=== PATIENT | female | born 1950 | race Caucasian/White ===

== ENCOUNTER 2019-07-05 11:15 | Observation (INO) | payer MEDICARE ==
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
[2019-07-05] MEDS ORDERED: HYDROcodone/ACETAMIN 5-325 MG* 1 TAB PO ONE (12:00)
[2019-07-05] MEDS ORDERED: Ketorolac *IM* INJ* 60 MG/2 ML VIAL IM ONE (12:00)
--- NOTE | 2019-07-05 12:01 | ED ---
Complex/Multi-Sys Presentation - HPI Summary HPI Summary: This pt is a 69 Y/O F presenting to [facility] with a CC of joint pain and stiffness that has been present for 3 weeks and has increased today to a 6/10 in severity. Her states that her joints are getting stiffer since the onset. She states that she has been having an increase in fatigue and stated that she has been taking 6 or more naps a day. She has recently started Humira 6 weeks ago due to her other pill decreasing her liver function. She states that when she woke up this morning she was unable to move. She denies fever, chills, erythema of eyes, sore throat, CP, SOB, cough, abdominal pain, N/V, dysuria, hematuria, myalgia, edema, rash, tingling, numbness, or dizziness. She states that she takes Mobic but denies any ibuprofen or Tylenol. She has aggravating factors with palpation and movement. She states that if she stays still her pain is not as bad. She states that she has been unable to ambulate correctly for about a month. She has a PMHx of arthritis. She has no pertinent FHx. She states that she only drinks on special occasions. - History Of Current Complaint Chief Complaint: EDGeneral Time Seen by Provider: 07/05/19 11:42 Hx Obtained From: Patient, Family/Specialty Foods Cook - Onset/Duration: Sudden Onset, Lasting Weeks - 3, Still Present, Worse Since - onset Timing: Constant Severity Currently: Moderate - 6/10 Severity Initially: Mild Location: Pain At: - states that all her joints are in pain Aggravating Factor(s): movement and palpation Alleviating Factor(s): lying down Associated Signs And Symptoms: Positive: Other - arthralgia. Negative: Dizziness, SOB, Cough, Chest Pain, Edema, Nausea, Vomiting, Abdominal Pain, Dysuria, Fever - Allergies/Home Medications Allergies/Adverse Reactions: Allergies Allergy/AdvReac Type Severity Reaction Status Date / Time sumatriptan [From Imitrex] Allergy Unknown Verified 07/05/19 11:31 Reaction Details artificial sweeteners Allergy Unknown Uncoded 07/05/19 11:31 Reaction Details Home Medications: Home Medications Adalimumab [Humira] 40 mg SUBCUT .[id number] 07/05/19 [History Confirmed 07/05/19] Docusate CAP* [Colace Cap*] 100 mg PO DAILY 07/05/19 [History Confirmed 07/05/19 ] Insulin Glargine,Hum.rec.anlog [Basaglar Kwikpen 100 inuts/ml 3 ml x 5 Pens] 50 units SUBCUT QPM 07/05/19 [History Confirmed 07/05/19] LORazepam TAB(*) [Ativan 1 MG TAB (*)] 1 mg PO TID PRN 07/05/19 [History Confirmed 07/05/19] Meloxicam(NF) [Mobic(NF)] 15 mg PO DAILY 07/05/19 [History Confirmed 07/05/19] Multivitamins/Minerals TAB* [Theragran/minerals TAB*] 1 tab PO DAILY 07/05/19 [ History Confirmed 07/05/19] metFORMIN* [Glucophage 1000 MG TAB *] 1,000 mg PO BID 07/05/19 [History Confirmed 07/05/19] PMH/Surg Hx/FS Hx/Imm Hx Previously Healthy: Yes Musculoskeletal History: Reports: Hx Arthritis Sensory History: Denies: Hx Contacts or Glasses Opthamlomology History: Denies: Hx Contacts or Glasses - Cancer History Hx Chemotherapy: No Hx Radiation Therapy: No - Surgical History Surgical History: None - Immunization History Immunizations Up to Date: Yes Infectious Disease History: No Infectious Disease History: Denies: Traveled Outside the [place] in Last 30 Days - Family History Known Family History: Positive: Cardiac Disease - Social History Occupation: Retired Lives: With Family Alcohol Use: Rare Hx Substance Use: No Substance Use Type: Reports: None Hx Tobacco Use: No Smoking Status (MU): Never Smoked Tobacco Review of Systems Negative: Fever, Chills Negative: Erythema Negative: Sore Throat Negative: Chest Pain Negative: Shortness Of Breath, Cough Negative: Abdominal Pain, Vomiting, Nausea Negative: dysuria, hematuria Positive: Arthralgia. Negative: Myalgia, Edema Negative: Rash Neurological: Negative - dizziness All Other Systems Reviewed And Are Negative: Yes Physical Exam - Summary Physical Exam Summary: Constitutional: Well-developed, Well-nourished, Alert. (-) Distressed Skin: Warm, Dry, erythema, fluctuance or effusion HENT: Normocephalic; Atraumatic Eyes: Conjunctiva normal Neck: Musculoskeletal ROM normal neck. (-) JVD, (-) Stridor, (-) Tracheal deviation Cardio: Rhythm regular, rate normal, Heart sounds normal; Intact distal pulses; The pedal pulses are 2+ and symmetric. Radial pulses are 2+ and symmetric. (-) Murmur Pulmonary/Chest wall: Effort normal. (-) Respiratory distress, (-) Wheezes, (-) Rales Abd: Soft, (-) tenderness, (-) Distension, (-) Guarding, (-) Rebound Musculoskeletal: (-) Edema, tenderness with pain and ROM to the L shoulder and R knee Lymph: (-) Cervical adenopathy Neuro: Alert, Oriented x3, Intact strength Psych: Mood and affect Normal Triage Information Reviewed: Yes Vital Signs On Initial Exam: Initial Vitals Temp Pulse Resp BP Pulse Ox 98.6 F 81 16 179/96 98 07/05/19 11:28 07/05/19 11:28 07/05/19 11:28 07/05/19 11:28 07/05/19 11:28 Vital Signs Reviewed: Yes Procedures - Sedation Patient Received Moderate/Deep Sedation with Procedure: No Diagnostics - Vital Signs Vital Signs Temp Pulse Resp BP Pulse Ox 07/05/19 11:28 98.6 F 81 16 179/96 98 - Laboratory Result Diagrams: 07/05/19 11:57 07/05/19 11:57 Lab Statement: Any lab studies that have been ordered have been reviewed, and results considered in the medical decision making process. - Radiology Knee X-Ray Radiology Interpretation Completed By: Radiologist Summary of Radiographic Findings: Advanced osteoarthritis. ED physician has reviewed this report. Shoulder X-Ray Radiology Interpretation Completed By: Radiologist Summary of Radiographic Findings: OSTEOARTHRITIS. NO ACUTE OSSEOUS INJURY. IF SYMPTOMS PERSIST, RECOMMEND REPEAT IMAGING. ED physician has reviewed this report. Re-Evaluation - Re-Evaluation First Eval Re-Evaluation Time: 15:21 Change: Improved Comment: Pt's pain is reportedly at 3/10. She still has increased pain with movement and was informed of the admission decision. Both her and her are agreeable. Complex Multi-Symp Course/Dx Course Of Treatment: This pt is a 69 Y/O F presenting to [facility] with a CC of joint pain and stiffness that has been present for 3 weeks and has increased today to a 6/10 in severity. Her states that her joints are getting stiffer since the onset. She states that she has been having an increase in fatigue and stated that she has been taking 6 or more naps a day. She has recently started Humira 6 weeks ago due to her other pill decreasing her liver function. She states that when she woke up this morning she was unable to move. She denies fever, chills, erythema of eyes, sore throat, CP, SOB, cough, abdominal pain, N/V, dysuria, hematuria, myalgia, edema, rash, tingling, numbness, or dizziness. She has a PMHx of Arthiritis. Her PE found Intact strength, tenderness with pain and ROM to the L shoulder and R knee, no erythema , fluctuance or effusion. She has abnormal laboratory values in the following areas: RBC 3.63, Hgb 11.7, MCH 32, INR 1.12, Lactic Acid of 2.3, AST 82, ALT 84 , C-Reactive Protein of 26.69. She was given Toradol, Deltasone, and [place] during her ED course. Her Knee X-Ray shows the following: Advanced osteoarthritis. Her Shoulder X-Ray shows the following: OSTEOARTHRITIS. NO ACUTE OSSEOUS INJURY. IF SYMPTOMS PERSIST, RECOMMEND REPEAT IMAGING. Dr. Franklin , power press supervisor, was consulted at 1520 and he agreed with plan for admission. He states that he will consult periodically and as needed. She will be admitted [place] [facility] [place] further care with a Dx of psoriatic arthritis and an inability to ambulate. - Diagnoses Provider Diagnoses: Psoriatic arthritis - Physician Notifications Discussed Care Of Patient With: Kasey Yang Time Discussed With Above Provider: 17:49 Instructed by Provider To: Admit As Inpatient Admit/Transition Orders Completed By ED Provider: Yes Discharge ED - Sign-Out/Discharge Documenting (check all that apply): Patient Departure - admitted - Discharge Plan Condition: Stable Disposition: ADMITTED TO [facility] Referrals: Steph Norris PA [Primary Care Provider] - - Attestation Statements Document Initiated by Scribe: Yes Documenting Scribe: Kennedy Pardo Provider For Whom Scribe is Documenting (Include Credential): Herminio Hatch MD Scribe Attestation: Kennedy Cheek, scribed for Herminio Hatch MD on 07/05/19 at 8835. Status of Scribe Document: Ready Consult Consult: Dr. Franklin, power press supervisor, was consulted at 1520 and he agreed with plan for admission. He states that he will consult periodically and as needed.
[2019-07-05 12:11] LABS: ABS Eosinophils 0.1 10^3/ul (0-0.6); ABS Lymphocytes 2.4 10^3/ul (1.0-4.8); ABS Monocytes 0.4 10^3/ul (0-0.8); ABS Neutrophils 3.6 10^3/ul (1.5-7.7); Eosinophil % 1.1 %; Hematocrit 35 % (35-47); Hemoglobin 11.7 g/dL (12.0-16.0); Lymphocyte % 36.3 %; Mean Corpuscular HGB Conc 34 g/dL (31-36); Mean Corpuscular Hemoglobin 32 pg (27-31); Mean Corpuscular Volume 95 fL (80-97); Mean Platelet Volume 7.8 fL (7.4-10.4); Nucleated Red Blood Cells % 0.1; Platelet Count 285 10^3/uL (150-450); Red Blood Count 3.63 10^6 /uL (3.70-4.87); Red Cell Distribution Width 14 % (10-15); White Blood Count 6.5 10^3/uL (3.5-10.8)
[2019-07-05 12:19] LABS: Activated Partial Thrombo Time 33.3 seconds (26.0-38.0); INR 1.12 (0.82-1.09)
[2019-07-05 12:31] LABS: BUN/Creatinine Ratio 19.2 (8-20); Potassium 4.4 mmol/L (3.5-5.0)
[2019-07-05 12:32] LABS: Albumin 3.2 g/dL (3.2-5.2); Albumin/Globulin Ratio 0.4 (1-3); C Reactive Protein 26.69 mg/L (<8.01); Calcium 9.1 mg/dL (8.6-10.3); EGFR African American 51.4 (>60); EGFR Non-African American 42.5 (>60); Globulin 7.5 g/dL (2-4); Total Bilirubin 0.4 mg/dL (0.2-1.0); Total Protein 10.7 g/dL (6.4-8.9)
[2019-07-05] MEDS ORDERED: NS 0.9% 1000 ML** 1,000 ML IV ONE (12:45)
[2019-07-05] MEDS ORDERED: Morphine 4 MG/ML VIAL (1 ml) 4 MG/ML VIAL IV ONE (15:00)
[2019-07-05] MEDS ORDERED: LORazepam TAB(*) 1 MG PO PRN (17:15)
[2019-07-05] MEDS ORDERED: Dextrose 50% Syringe 50 ML* 25 GM/50 ML SYRINGE IV PUSH PRN (17:16)
[2019-07-05] MEDS ORDERED: Morphine INJ* 2 MG/ML 1 ML SYRINGE (TWO MG - NEW SYRINGE VERSION) IV PRN (17:19)
--- NOTE | 2019-07-05 17:52 | CONSULT ---
Consult Consult: Brief Rheumatology recommendations: Patient is a complicated 69 yo female with historical psoriatic arthritis with concern for worsening joint pain particularly the knee following cessation of MTX therapy. Below based on review of the medical chart at this time are my preliminary recommendations, after speaking with hospitalist NAKITA Pena: -ESR, repeat SPEP and UPEP, immunoglobulins -urinalysis and urine protein, urine creatinine (spot tests) -complement--C3 and C4 -Right upper quadrant ultrasound for the persistently elevated LFTs -IGFA TERRIE and SUMANTH, smooth muscle antibody and dsDNA antibody titer -ferritin, iron panel -depending on clinical course into tomorrow may also require MRI of affected joints while in-patient Full consultation note to follow
[2019-07-05 19:09] LABS: Indirect Bilirubin 0.3 mg/dL (0.3-1.0)
[2019-07-05 19:37] LABS: Erythrocyte Sed Rate > 120 mm/Hr (0-29)
[2019-07-05] MEDS ORDERED: Insulin GLARGINE(*) 1 UNITS UNIT SUBCUT SCH (21:00)
[2019-07-05] MEDS: Insulin LISPRO* 1 UNITS UNIT SUBCUT SCH (22:23)
[2019-07-05] MEDS: Heparin VIAL(*) 5000 UNITS/ML VIAL (FIVE THOUSAND) SUBCUT SCH (22:25)
--- NOTE | 2019-07-06 01:21 | HP ---
CC: RADHA Skinner * HISTORY AND PHYSICAL: DATE OF ADMISSION: 07/05/19 PRIMARY CARE PROVIDER: RADHA Skinner OTHER PROVIDER: Dr. Franklin, Rheumatology in consultation. ATTENDING PHYSICIAN: Dr. Yang * (dictated by Nadia Miramontes NP) CHIEF COMPLAINT: 1. Joint pain. 2. Joint stiffness. HISTORY OF PRESENT ILLNESS: Mrs. Noel is a 69-year-old female with a past medical history significant for psoriatic arthritis and diabetes type 2, who presents to the emergency department today after 2 to 3 weeks of worsening joint pain and waking this morning with joints being "frozen." While in the emergency room the patient was found to have a slightly elevated CRP at 26.69 and was also found not to be able to control her pain and ambulate independently , therefore, hospitalists were asked to consult for admission. PAST MEDICAL HISTORY: 1. Psoriatic arthritis. 2. Diabetes type 2. PAST SURGICAL HISTORY: 1. Tubal ligation. 2. Facial reconstruction. ALLERGIES: SUMATRIPTAN and ARTIFICIAL SWEETENERS. FAMILY HISTORY: Mother and father both of cancer. The patient has a sister that has unknown health. SOCIAL HISTORY: The patient lives with her , Chalino, who is her healthcare proxy. The patient recently started ambulating with a cane. The patient denies smoking. The patient has rare alcohol use. The patient denies drug use. REVIEW OF SYSTEMS: The patient reports diffuse joint pain with more severe joint pain in right knee and left shoulder. The patient denies fever, anorexia , chest pain, edema, cough, hemoptysis, shortness of breath, nausea, vomiting, diarrhea, cough, abdominal pain, dysuria, weakness, visual complaints, dysphagia , rashes or lesions, anxiety. A 14-point review of systems was completed and all others were negative. PHYSICAL EXAMINATION GENERAL: Mrs. Noel is a 69-year-old female who is lying in bed, appears to be in no acute distress. Appears stated age. VITAL SIGNS: Temp 98.6, HR 81, RR 16, O2 saturation 93% on room air, BP 161/82. HEENT: EOMs intact. PERRLA. Oral mucosa is moist without lesion. Posterior pharynx is clear. NECK: Supple. No lymphadenopathy. RESPIRATORY: Symmetrical chest expansion. No accessory muscle use. Lungs are clear to auscultation. CARDIAC: S1, S2 present. Regular rate and rhythm. No murmurs, rubs, or gallops. ABDOMEN: Soft, nontender. Bowel sounds normoactive. EXTREMITIES: Skin is warm and smooth bilaterally. No edema. No clubbing or cyanosis. Pedal pulses 2+ bilaterally. MUSCULOSKELETAL: The patient is not engaging in range of motion assessment due to pain. Therefore, the patient has limited range of motion, specifically in left upper extremity and right lower extremity due to pain. The patient has mild swelling to right knee. All other joints are normal. No redness or warmth to this knee. NEURO: Awake, alert, and oriented x4. Motor strength is 5/5 in upper and lower extremities. SKIN: Grossly intact. No lesions. DIAGNOSTIC STUDIES/LABORATORY DATA: WBC 6.5, hemoglobin 11.7, hematocrit 35, platelets 285. Sodium 130, potassium 4.4, chloride 101, carbon dioxide 24, BUN 24, creatinine 1.25, glucose 157, lactic 1.7. AST 82, ALT 84, CRP 26.69. Right knee x-ray: Advanced osteoarthritis. Left shoulder x-ray: Osteoarthritis. No acute osseous injury. ASSESSMENT AND PLAN: Mrs. Noel is a 69-year-old female with a past medical history significant for psoriatic arthritis and diabetes type 2, who presented to the emergency department today with diffuse joint pain. It was found to possibly have a flareup of her psoriatic arthritis. She was also found not able to ambulate or control pain at home, therefore, the patient will be admitted in observation. 1. Joint pain: Given the patient's history of psoriatic arthritis, Dr. Franklin from Rheumatology was consulted and we very much appreciate his assistance. Rheumatology recommends to continue pain control and has requested labs including ESR, , UPEP, immunoglobins, urinalysis, urine protein, urine creatinine, complement C3 and C4, Ig assay, TERRIE, SUMANTH, smooth muscle antibody, __ ____ antibody titer, ferritin, iron panel. All these labs had been ordered and are pending. The patient may need an MRI of affected joints while inpatient depending on clinical course. The patient received prednisone in the emergency department and it was advised not to reorder it at this time, but see how the patient responds tomorrow due to her dose received today. The patient's pain will be managed currently with morphine. We should also monitor the patient for fever given her swollen joint, although septic joint is low on the differential at this time, given she has no other signs of infection. 2. Elevated AST, ALT: The patient has an elevated AST, ALT which is trending down from higher numbers in April of 2019. Either way, we have ordered an ultrasound of her right upper quadrant to evaluate further. I have also ordered liver panel for tomorrow. 3. Hyponatremia: The patient is slightly hyponatremic at 130. We will trend this tomorrow with his CMP. 4. Elevated creatinine: The patient's creatinine is 1.25, which is near her baseline. We will avoid nephrotoxic medications and repeat this tomorrow. 5. Diabetes mellitus type 2: The patient is currently on glargine and metformin at home. We will continue the patient's glargine at reduced dose. We will hold the patient's metformin and place her on sliding scale and lispro insulin. We will place the patient on a consistent carb diet. 6. FEN: The patient will be on a consistent carb diet. 7. Code status: The patient is a full code. 8. DVT prophylaxis: Based on DVT Risk Assessment, the patient is at high risk. I will place her on subcu heparin. TIME SPENT: Approximately 65 minutes was spent on admission, greater than half that time was spent with patient and the patient obtaining the history, performing physical exam, and reviewing my plan of care. This case has been reviewed with my attending, Dr. Yang, who is in agreed on plan of care. NADIA MIRAMONTES, NAKITA [id number]/[facility] #: [id number] HEMAL[place]
[2019-07-06 06:33] LABS: % Iron Saturation 21 % (15-55); Iron 64 ug/dL (50-212); Total Iron Binding Capacity 311 mcg/dL (250-450); Transferrin 222 mg/dL (203-362)
[2019-07-06 06:50] LABS: Ferritin 19.9 ng/mL (11-307)
[2019-07-06] MEDS: Insulin LISPRO* 1 UNITS UNIT SUBCUT SCH ×2 (08:43→13:02)
[2019-07-06] MEDS: Heparin VIAL(*) 5000 UNITS/ML VIAL (FIVE THOUSAND) SUBCUT SCH ×2 (08:44→13:03)
[2019-07-06] MEDS ORDERED: Docusate CAP* 100 MG PO SCH (09:00)
[2019-07-06] MEDS ORDERED: Triamcinolone Acetonide* 40 MG/ML 1 ML VIAL INTRAARTIC ONE (10:05)
[2019-07-06 10:22] LABS: ABS Lymphocytes 2.3 10^3/ul (1.0-4.8); ABS Monocytes 0.5 10^3/ul (0-0.8); ABS Neutrophils 4.1 10^3/ul (1.5-7.7); Eosinophil % 0.2 %; Hematocrit 30 % (35-47); Lymphocyte % 33.1 %; Mean Corpuscular HGB Conc 33 g/dL (31-36); Mean Corpuscular Hemoglobin 32 pg (27-31); Mean Corpuscular Volume 95 fL (80-97); Mean Platelet Volume 8.5 fL (7.4-10.4); Nucleated Red Blood Cells % 0.1; Platelet Count 262 10^3/uL (150-450); Red Blood Count 3.13 10^6 /uL (3.70-4.87); Red Cell Distribution Width 15 % (10-15); White Blood Count 6.9 10^3/uL (3.5-10.8)
[2019-07-06 10:31] LABS: Albumin 2.8 g/dL (3.2-5.2); Albumin/Globulin Ratio 0.4 (1-3); BUN/Creatinine Ratio 24.6 (8-20); Calcium 8.4 mg/dL (8.6-10.3); EGFR Non-African American 45.4 (>60); Globulin 6.6 g/dL (2-4); HDL Cholesterol 28.1 mg/dL; Potassium 4.3 mmol/L (3.5-5.0); Total Bilirubin 0.2 mg/dL (0.2-1.0); Total Protein 9.4 g/dL (6.4-8.9)
--- NOTE | 2019-07-06 11:23 | CONSULT ---
Consult Consult: RHEUMATOLOGY CONSULTATION Staff Physician Ceasar Franklin MD REASON FOR CONSULTATION: Severe right knee pain ASSESSMENT / PLAN 69 yo female with history of psoriasis, psoriatic arthritis on Humira monotherapy, CKD with proteinuria and chronically elevated ESR, and diabetes presenting with ongoing and worsening right knee pain over the past 3 weeks, most concerning for osteoarthritis-associated pain and likely some chronic meniscal injury based on evaluation today. #Right knee pain: Patients right knee demonstrates no significant signs of inflammatory arthritis, though she does have some benign swelling and locking more indicative of meniscal/mechanical OA related symptoms. She is able to bare weight on the joint, and has no systemic type symptoms all of which are reassuring for any underlying infectious etiology. Given the lack of warmth/ erythema do not suspect relation at this point to her psoriatic arthritis. For treatment in-patient, given that it was bad enough to cause admission, I recommended acutely injection with lidocaine 1% and kenalog 40mg, along with use of a brace at home and physical therapy consult on discharge. Counseled as per procedure note to follow to look for subsequent knee swelling/warmth or systemic symptoms that should be concerning for infectious etiology POST injection. If she is able to reasonably bare weight today, there is no acute Rheumatologic concern for this knee that caused her admission that needs to keep her in the hospital. Will f/u wiith me as an outpatient and will try to get her a sooner appointment than is currently scheduled. #Psoriasis and Psoriatic Arthritis: Reasonable control with no evidence for synovitis on my exam today. 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 #Left shoulder pain: Most consistent with supraspinatus pathology, mostly intact ROM on exam and no significant impingement signs early in ROM makes active bursitis less suspicious. Recommend PT on discharge from hospital, if not improving as an outpatient, can consider subacromial bursa injection to help her through PT further. #Elevated ESR and polyclonal gammopathy: Long-standing and at this point based on her clinical history accompanying these labs and exam as well not concerning for active inflammation, likely related to her ongoing kidney disease. I find no evidence by history that would be consistent with active inflammatory disease at this time of evaluation. Appreciate inpatient service helping with obtaining labs that will be useful in the outpatient setting. #Aminotransferase elevation: Patient with downward trending LFTs, agree possible MTX associated that she was previously taking, and psoriatics often have concomitant NAFLD that causes smoldering LFTs. Reportedly has had work-up performed previously, and current abdominal ultrasound is reassuring for lack of active disease (gall bladder etc) as an ongoing etiology. RECCOMMENDATIONS: -Patient will get called for sooner appointment with [facility] Rheumatology, office phone [phone] (please put in discharge paperwork) -Recommend on discharge PT referral for the knee osteoarthritis and left shoulder osteoarthritis -OK to continue Humira from current safety standpoint as prescribed by her railroad surveyor -She can ice / use heat on the knee and shoulder as needed -Return precautions for the knee injection include increased swelling, redness , warmth of the knee -OK to discharge from the Rheumatology standpoint once she is comfortable- enough with the knee -Will sign off but please call back with any questions / concerns, and thank you for involving me in the care of this patient A total of 90 minutes was spent [id number] with the patient and on the floor to include more than 50% time spent counseling about disease and also performance of arthrocentesis conducted (see procedure note) Ceasar Franklin MD [facility] Rheumatology [phone] CHIEF COMPLAINT A few weeks of worsening left shoulder and right knee pain" HISTORY OF PRESENT ILLNESS Patient is a very pleasant, active 69 yo female with history of psoriasis / psoriatic arthritis, CKD stage III and diabetes who presented to the ED with several weeks of right knee pain/stiffness and locking, as well as left shoulder discomfort with internal rotation. She reports some mild right knee swelling. No known trauma. No other joints affected and no synovitis. Currently taking Humira and tolerating this well thus far. In the ED I received a call and had noted her continued knee pain despite toradol, prednisone, morphine etc and recommended inpatient admission given difficulty baring weight. Patient denies fevers, chills, unintentional weight loss, recent injuries, no skin changes / rashes, no SOB/cough, no active GI symptoms, no recent illnesses , no recent increase in activity. Denies other joint pains or swelling, no onycholysis, no dactylitis. No history of pleurisy, no history of pericarditis, no history of severe blood clots. REVIEW OF SYSTEMS -CONST: No fever/chills. No Weight loss. -EYES: No redness/pain/photophobia -ENMT: No Headaches. No Blurred/Double Vision. No nasal discharge/ congestion and no sore throat. -CVS: No Chest Pain, Palpitations, edema, RODRIGUEZ, orthopnea, or PND. -PULM: No SOB or cough. No hemoptysis. -GI: No dyspahgia/odynophagia, No Nausea/Vomiting/Diarrhea/Constipation. No BRBPR, hematachezia, or melena. No history of ulcers or reflux. -: Patient denies dysuria, oliguria, polyuria,or hematuria. -ENDO: No polydispsia. No heat/cold intolerance. No dry skin or excessive sweating. -HEM/LYMPH: No CA history. No easy bleeding. -IMMUNO: -NEURO: No neuropathy. Patient denies blackouts, weakness, or paralysis. -INTEG: No rashes. -MSK: Per HPI -PSYCH: No suicidal or homicidal ideations. No depression. -Comprehensive (12 systems) ROS was completed and all pertinent items listed in HPI or above. 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 -General: Alert and oriented. Well developed and nourished. The patient did not appear distressed or uncomfortable. The patient ambulated with antalgic gait -Head: Scalp: Appeared normal. -Eyes: PERRL. Extraocular muscles were intact. External Eye: No hyperemia of the conjunctiva noted Sclera: Not red. -Oral cavity: Buccal Mucosa showed no ulcer. Tongue did not have an ulcer. Salivary Glands: No xerostomia was observed. No parotid swelling noted. Pharynx: Pharynx did not have an ulcer. -Lymph Nodes: Cervical, supraclavicular, submandibular, preauricular, posterior auricular and submental lymph nodes were non-palpable. -Lungs: Respiration rhythm and depth was normal. Clear to auscultation without rales or wheezing. Work of breathing was not increased. -Cardiovascular system: Heart Rate and Rhythm: Normal. Heart Sounds: Normal. Murmurs: No murmurs were heard. Lower Extremity Edema: Not present. -Abdomen: Visual Inspection: Abdomen was normal on visual inspection. Auscultation: Abdominal auscultation revealed no abnormalities. Palpation: Abdominal palpation revealed no abnormalities. No hepatosplenomegaly. -Musculoskeletal system: (NML means normal; No swelling, warmth, tenderness , loss of range of motion, or deformity as applicable) Hands: MCPs: NML PIPs: NML DIPs: NML Wrists: NML Elbows: NML Shoulders: NML, except left shoulder with mild positive Hawking and Neer sign with forward flexion beyond 100 degrees Cervical Spine: NML Thoracic Spine: NML Lumbosacral Spine: NML Hips: NML Knees: NML, except right knee S1T0W0 with very mild suprapatellar and medial swelling and non-erythematous appearance, cooler than surrounding skin Ankles: NML Feet: NML -Nails: No nail pitting, onycholysis or periungual erythema noted. Nailfold capillariscopic examination was normal. -Neurologic: Deep tendon reflexes were 2+ at the bilateral biceps, triceps, brachioradialis, knees and ankles. Sensory & strength exams were normal. The patient exhibited 5/5 strength of the proximal upper/lower extremities and neck flexors/extensors. -Skin: No rash seen. -Psych: Mood, Affect, & Though Content Appropriate LABORATORY STUDIES Reviewed in [facility] RADIOLOGY STUDIES I personally reviewed the knee and shoulder radiographs which demonstrated significant osteoarthritis of the right knee and mild to moderate GH joint osteoarthritis without any evidence of calcium deposition or erosions that would be related to underlying psoriatic arthritis Dextrose (D50w Syringe 50 Ml*) 12.5 gm IV PUSH .FOR FS < 60 - SS PRN PRN Reason: FS < 60 Docusate Sodium (Colace Cap*) 100 mg PO DAILY [facility] Last Admin: 07/06/19 08:46 Dose: 100 mg Heparin Sodium (Porcine) (Heparin Vial(*)) 5,000 units SUBCUT Q8HR JORDAN Last Admin: 07/06/19 08:44 Dose: 5,000 units Insulin Glargine (Lantus(*)) 25 units SUBCUT BEDTIME JORDAN Last Admin: 07/05/19 22:24 Dose: 25 units Insulin Human Lispro (Humalog*) 0 units SUBCUT ACHS [facility]; Protocol Last Admin: 07/06/19 08:43 Dose: 3 units Lorazepam (Ativan Tab(*)) 1 mg PO TID PRN PRN Reason: ANXIETY Last Admin: 07/06/19 02:04 Dose: 1 mg Morphine Sulfate (Morphine Inj (Syringe))*) 2 mg IV Q4H PRN PRN Reason: PAIN - MILD Last Admin: 07/05/19 22:32 Dose: 2 mg Abnormal Lab Results 07/05/19 07/05/19 07/05/19 11:57 11:57 11:57 WBC 6.5 RBC 3.63 L Hgb 11.7 L Hct 35 MCV 95 MCH 32 H MCHC 34 RDW 14 Plt Count 285 MPV 7.8 Neut % (Auto) 55.5 Lymph % (Auto) 36.3 [place] % (Auto) 6.9 Eos % (Auto) 1.1 Baso % (Auto) 0.2 Absolute Neuts (auto) 3.6 Absolute Lymphs (auto) 2.4 Absolute Monos (auto) 0.4 Absolute Eos (auto) 0.1 Absolute Basos (auto) 0.0 Absolute Nucleated RBC 0.0 Nucleated RBC % 0.1 ESR > 120 H INR (Anticoag Therapy) 1.12 H APTT 33.3 Sodium 130 L Potassium 4.4 Chloride 101 Carbon Dioxide 24 Anion Gap 5 BUN 24 Creatinine 1.25 H Est GFR ( Amer) 51.4 Est GFR (Non-Af Amer) 42.5 BUN/Creatinine Ratio 19.2 Glucose 157 H POC Glucose (mg/dL) Lactic Acid Calcium 9.1 Iron TIBC % Saturation Unsat Iron Binding Transferrin Ferritin Total Bilirubin 0.40 Direct Bilirubin 0.10 Indirect Bilirubin 0.3 AST 82 H ALT 84 H Alkaline Phosphatase 68 Troponin I 0.00 C-Reactive Protein 26.69 H Total Protein 10.7 H Albumin 3.2 Globulin 7.5 H Albumin/Globulin Ratio 0.4 L Triglycerides Cholesterol LDL Cholesterol HDL Cholesterol 07/05/19 07/05/19 07/05/19 11:57 15:52 21:50 WBC RBC Hgb Hct MCV MCH MCHC RDW Plt Count MPV Neut % (Auto) Lymph % (Auto) [place] % (Auto) Eos % (Auto) Baso % (Auto) Absolute Neuts (auto) Absolute Lymphs (auto) Absolute Monos (auto) Absolute Eos (auto) Absolute Basos (auto) Absolute Nucleated RBC Nucleated RBC % ESR INR (Anticoag Therapy) APTT Sodium Potassium Chloride Carbon Dioxide Anion Gap BUN Creatinine Est GFR ( Amer) Est GFR (Non-Af Amer) BUN/Creatinine Ratio Glucose POC Glucose (mg/dL) 356 H Lactic Acid 2.3 H* 1.7 Calcium Iron TIBC % Saturation Unsat Iron Binding Transferrin Ferritin Total Bilirubin Direct Bilirubin Indirect Bilirubin AST ALT Alkaline Phosphatase Troponin I C-Reactive Protein Total Protein Albumin Globulin Albumin/Globulin Ratio Triglycerides Cholesterol LDL Cholesterol HDL Cholesterol 07/06/19 07/06/19 07/06/19 05:41 05:41 05:41 WBC 6.9 RBC 3.13 L Hgb 10.0 L Hct 30 L MCV 95 MCH 32 H MCHC 33 RDW 15 Plt Count 262 MPV 8.5 Neut % (Auto) 59.3 Lymph % (Auto) 33.1 [place] % (Auto) 7.2 Eos % (Auto) 0.2 Baso % (Auto) 0.2 Absolute Neuts (auto) 4.1 Absolute Lymphs (auto) 2.3 Absolute Monos (auto) 0.5 Absolute Eos (auto) 0.0 Absolute Basos (auto) 0.0 Absolute Nucleated RBC 0.0 Nucleated RBC % 0.1 ESR INR (Anticoag Therapy) APTT Sodium 130 L Potassium 4.3 Chloride 103 Carbon Dioxide 23 Anion Gap 4 BUN 29 H Creatinine 1.18 H Est GFR ( Amer) 55.0 Est GFR (Non-Af Amer) 45.4 BUN/Creatinine Ratio 24.6 H Glucose 214 H POC Glucose (mg/dL) Lactic Acid Calcium 8.4 L Iron 64 TIBC 311 % Saturation 21 Unsat Iron Binding < 296 Transferrin 222 Ferritin 19.9 Total Bilirubin 0.20 Direct Bilirubin Indirect Bilirubin AST 55 H ALT 65 H Alkaline Phosphatase 58 Troponin I C-Reactive Protein Total Protein 9.4 H Albumin 2.8 L Globulin 6.6 H Albumin/Globulin Ratio 0.4 L Triglycerides 185 Cholesterol 160 LDL Cholesterol 95 HDL Cholesterol 28.1 07/06/19 07:24 WBC RBC Hgb Hct MCV MCH MCHC RDW Plt Count MPV Neut % (Auto) Lymph % (Auto) [place] % (Auto) Eos % (Auto) Baso % (Auto) Absolute Neuts (auto) Absolute Lymphs (auto) Absolute Monos (auto) Absolute Eos (auto) Absolute Basos (auto) Absolute Nucleated RBC Nucleated RBC % ESR INR (Anticoag Therapy) APTT Sodium Potassium Chloride Carbon Dioxide Anion Gap BUN Creatinine Est GFR ( Amer) Est GFR (Non-Af Amer) BUN/Creatinine Ratio Glucose POC Glucose (mg/dL) 171 H Lactic Acid Calcium Iron TIBC % Saturation Unsat Iron Binding Transferrin Ferritin Total Bilirubin Direct Bilirubin Indirect Bilirubin AST ALT Alkaline Phosphatase Troponin I C-Reactive Protein Total Protein Albumin Globulin Albumin/Globulin Ratio Triglycerides Cholesterol LDL Cholesterol HDL Cholesterol
--- NOTE | 2019-07-06 11:46 | CONSULT ---
Consult Consult: RHEUMATOLOGY PROCEDURE NOTE: Right knee arthrocentesis Final Time Out and Pre-Procedure Verification Process: Pre-Procedure verification Confirmed correct patient, procedure, consent, positioning, side/site, blood products and special equipment (as applicable). INFORMED WRITTEN CONSENT was obtained, explaining the indications, alternatives , potential benefits, and complications to include but not limited to bleeding, infection, post-steroid injection pain or flare of inflammation, nerve damage, permanent skin discoloration or thinning, subcutaneous fat necrosis causing a permanent depression in the skin, allergic reaction, and damage to internal organs The procedure site was marked (or used alternative marking method). Note: not required for obvious wound/lesion, midline, single organ procedures, procedures without intended laterality (e.g., endoscopes and colposcopies) or procedures in which there are no predetermined sites of insertion. A Time-Out was performed immediately before the procedure noting the above as well as confirming the patients position, relevant images and labs, antibiotics , fluids, and safety precautions. Team agrees on procedure to be done: Right knee arthrocentesis / kenalog and lidocaine injection Date/Time: 07/06/2019 at 10:40 AM INJECTION AND/OR ASPIRATION PROCEDURE NOTE: INDICATION: To assist in the diagnosis of and to treat inflammatory, infectious or non-inflammatory rheumatic conditions, such as gout or rheumatoid arthritis. SITE: Right knee SKIN PREP: The skin was cleansed with 30 second scrub chlorhexidine solution. The procedure was performed using standard aseptic technique. LOCAL ANESTHESIA: 2cc lidocaine 1%without epi ASPIRATION : None obtained Injection Mixture: 40mg kenalog (triamcinolone acetonide) COMPLICATIONS: The procedure was tolerated well and there were no complications noted. INSTRUCTIONS: Pt instructed to watch for signs of infection; If any of swelling, warmth, increased pain, fever, pt is to seek immediate medical care. ACTIVITIES: Patient can ice as needed . COMMENTS: Patient tolerated the procedure well, will continue use of brace and recommend icing/heat as needed for comfort. Return precautions given. PERFORMED BY: Ceasar Franklin MD
[2019-07-06 12:25] VITALS: BP 153/73
--- NOTE | 2019-07-06 13:29 | PN ---
Subjective Date of Service: 07/06/19 Interval History: This morning she denies any lightheadedness, CP/tightness, palpitations, SOB, N /V/D, unusual numbness/tingling. Denies any concerns at this time. Past Medical History: Unchanged from Admission - CKD III Objective Active Medications: Dextrose (D50w Syringe 50 Ml*) 12.5 gm IV PUSH .FOR FS < 60 - SS PRN PRN Reason: FS < 60 Docusate Sodium (Colace Cap*) 100 mg PO DAILY [facility] Last Admin: 07/06/19 08:46 Dose: 100 mg Heparin Sodium (Porcine) (Heparin Vial(*)) 5,000 units SUBCUT Q8HR JORDAN Last Admin: 07/06/19 13:03 Dose: Not Given Insulin Glargine (Lantus(*)) 25 units SUBCUT BEDTIME [facility]ORD[facility] Last Admin: 07/05/19 22:24 Dose: 25 units Insulin Human Lispro (Humalog*) 0 units SUBCUT ACHS [facility]; Protocol Last Admin: 07/06/19 13:02 Dose: 3 units Lorazepam (Ativan Tab(*)) 1 mg PO TID PRN PRN Reason: ANXIETY Last Admin: 07/06/19 02:04 Dose: 1 mg Morphine Sulfate (Morphine Inj (Syringe))*) 2 mg IV Q4H PRN PRN Reason: PAIN - MILD Last Admin: 07/05/19 22:32 Dose: 2 mg Vital Signs - 8 hr 07/06/19 07/06/19 07/06/19 07:15 08:00 08:48 Temperature 97.9 F Pulse Rate 64 Respiratory 16 16 Rate Blood Pressure 136/47 (mmHg) O2 Sat by Pulse 99 99 Oximetry 07/06/19 07/06/19 07/06/19 10:48 11:15 13:02 Temperature 97.2 F Pulse Rate 96 Respiratory 16 16 16 Rate Blood Pressure 153/73 (mmHg) O2 Sat by Pulse 98 Oximetry Oxygen Devices in Use Now: None Appearance: in NAD. Able to move self around in bed, swing legs off bed and back up with minimal difficulty needing no assistance. Eyes: - - PERRL Neck: - - supple Respiratory: Symmetrical Chest Expansion and Respiratory Effort, Clear to Auscultation Cardiovascular: RRR, - - No pedal edema Abdominal: NL Sounds; No Tenderness; No Distention Extremities: - - Mild swelling to R knee, cool to the touch, no erythema. Limited ROM to R knee and L shoulder, all other extremities WNL. Skin: - - warm and intact Neurological: Alert and Oriented x 3 Nutrition: Taking PO's Result Diagrams: 07/06/19 05:41 07/06/19 05:41 Microbiology and Other Data: Microbiology 07/05/19 11:57 Aerobic Blood Culture - Preliminary Blood Venous No Growth Day 1 Anaerobic Blood Culture - Preliminary No Growth Day 1 07/05/19 12:03 Aerobic Blood Culture - Preliminary Blood Venous No Growth Day 1 Anaerobic Blood Culture - Preliminary No Growth Day 1 Assess/Plan/Problems-Billing Assessment: Pt is a 69yo female with PMHx significant for psoriatic arthritis, DM II, and CKD III. She was presented to the ED on 07/05 for a hx of 2-3 weeks of worsening joint pain and stiffness to her R knee and her L shoulder. She was admitted to the medical unit. - Patient Problems (1) Joint pain Status: Acute Code(s): M25.50 - PAIN IN UNSPECIFIED JOINT SNOMED Code(s): 54351656 Comment: OA vs psoriatic arthritis flare. Improved from prior reports, rheumatology consulted this morning and did steroid injection into R knee. Outpatient PT ordered to evaluate and treat R knee and L shoulder. Will follow- up as outpt with rheumatology. She can continue her usual regimen of Humira per rheumatology. (2) Diabetes type 2, controlled Status: Acute Code(s): E11.9 - TYPE 2 DIABETES MELLITUS WITHOUT COMPLICATIONS SNOMED Code(s): 28150336 Comment: Chronic condition. Last A1C 6.7 from 04/2019. Serum glucose 356 on the night of 07/05, had received a dose of PO prednisone in the ED prior. AC values 171 and 185 today. Can follow up with her PCP. Can continue all usual diabetic medications at discharge. (3) CKD (chronic kidney disease) stage 3, GFR 30-59 ml/min Status: Acute Code(s): N18.3 - CHRONIC KIDNEY DISEASE, STAGE 3 (MODERATE) SNOMED Code(s): 877621767 Comment: GFR 45.4. At baseline. Can follow-up with PCP as needed. (4) Elevated alanine aminotransferase (ALT) level Status: Acute Code(s): R74.0 - NONSPEC ELEV OF LEVELS OF TRANSAMNS & LACTIC ACID DEHYDRGNSE SNOMED Code(s): 457937914 Comment: Likely due to being on Humira. RUQ U/S obtained, no hepatic abnormalities. Can follow with dermatology about this as they are prescribing. (5) Elevated serum aspartate aminotransferase level Status: Acute Code(s): R74.0 - NONSPEC ELEV OF LEVELS OF TRANSAMNS & LACTIC ACID DEHYDRGNSE SNOMED Code(s): 106614414 Comment: Likely due to being on Humira. RUQ U/S obtained, no hepatic abnormalities. Can follow with dermatology about this as they are prescribing. (6) Hyponatremia Status: Acute Code(s): E87.1 - HYPO-OSMOLALITY AND HYPONATREMIA SNOMED Code( s): 96762114 Comment: Na 130 on arrival and this morning. She has been in pain which can be a potential cause of SIADH. She also has CKD III which could be a contributing factor. She can follow-up with her PCP as necessary. Control pain - she has been given a steroid injection to her R knee which may help to alleviate her pain and could potentially help reverse hyponatremia if SIADH is a contributing factor. (7) Hypertension Status: Acute Code(s): I10 - ESSENTIAL (PRIMARY) HYPERTENSION SNOMED Code(s) : 63123255 Comment: Mild elevations on BP during hospital visit. Not on any BP lowering medications. Could be in relation to prednisone dosed in the ED. Instructed to record BPs at home and follow up with PCP. Status and Disposition: Pt to be discharged home. Condition improved and stable. Attending: Kasey Yang
--- NOTE | 2019-07-06 15:39 | DCNOTE ---
Subjective Date of Service: 07/06/19 Interval History: Date of Admission: 07/05/19 Date of Discharge: 07/06/19 Attending physician: PCP: Steph Norris Consulting physician: (rheumatology) Primary diagnosis: Joint pain - OA vs psoriatic arthritis flare Secondary diagnoses: DM II CKD III Elevated AST/ALT Hyponatremia Procedures: Steroid injection to R knee 07/06/19 HPI: Pt is a 69yo female with PMHx significant for psoriatic arthritis, DM II, and CKD III. She was presented to the ED on 07/05 for a hx of 2-3 weeks of worsening joint pain and stiffness to her R knee and her L shoulder. She was unable to safely ambulate/bare weight to her lower extremities in the ED and the hospitalists were asked to evaluate for admission. She was then admitted to the medical floor. in this morning to evaluate. U/S performed, steroid injection to R knee, see consultation note. Denies any concerns at this time. States that she has been able to ambulate around with her cane without any difficulty. Home Medications: Adalimumab [Humira(Cf)] 40 mg SUBCUT .[id number] 07/05/19 [History Confirmed ] Docusate CAP* [Colace Cap*] 100 mg PO DAILY 07/05/19 [History Confirmed 07/05/19 ] Insulin Glargine,Hum.rec.anlog [Basaglar Kwikpen 100 inuts/ml 3 ml x 5 Pens] 50 units SUBCUT QPM 07/05/19 [History Confirmed 07/05/19] LORazepam TAB(*) [Ativan 1 MG TAB (*)] 1 mg PO TID PRN 07/05/19 [History Confirmed 07/05/19] Meloxicam(NF) [Mobic(NF)] 15 mg PO DAILY 07/05/19 [History Confirmed 07/05/19] Multivitamins/Minerals TAB* [Theragran/minerals TAB*] 1 tab PO DAILY 07/05/19 [ History Confirmed 07/05/19] metFORMIN* [Glucophage 1000 MG TAB *] 1,000 mg PO BID 07/05/19 [History Confirmed 07/05/19] Past Medical History: Unchanged from Admission - CKD III Objective Active Medications: Dextrose (D50w Syringe 50 Ml*) 12.5 gm IV PUSH .FOR FS < 60 - SS PRN PRN Reason: FS < 60 Docusate Sodium (Colace Cap*) 100 mg PO DAILY [facility] Last Admin: 07/06/19 08:46 Dose: 100 mg Heparin Sodium (Porcine) (Heparin Vial(*)) 5,000 units SUBCUT Q8HR JORDAN Last Admin: 07/06/19 13:03 Dose: Not Given Insulin Glargine (Lantus(*)) 25 units SUBCUT BEDTIME JORDAN Last Admin: 07/05/19 22:24 Dose: 25 units Insulin Human Lispro (Humalog*) 0 units SUBCUT ACHS JORDAN; Protocol Last Admin: 07/06/19 13:02 Dose: 3 units Lorazepam (Ativan Tab(*)) 1 mg PO TID PRN PRN Reason: ANXIETY Last Admin: 07/06/19 02:04 Dose: 1 mg Morphine Sulfate (Morphine Inj (Syringe))*) 2 mg IV Q4H PRN PRN Reason: PAIN - MILD Last Admin: 07/05/19 22:32 Dose: 2 mg Vital Signs - 8 hr 07/06/19 07/06/19 07/06/19 08:00 08:48 10:48 Temperature Pulse Rate Respiratory 16 16 Rate Blood Pressure (mmHg) O2 Sat by Pulse 99 Oximetry 07/06/19 07/06/19 11:15 13:02 Temperature 97.2 F Pulse Rate 96 Respiratory 16 16 Rate Blood Pressure 153/73 (mmHg) O2 Sat by Pulse 98 Oximetry Oxygen Devices in Use Now: None Result Diagrams: 07/06/19 05:41 07/06/19 05:41 Microbiology and Other Data: Microbiology 07/05/19 11:57 Aerobic Blood Culture - Preliminary Blood Venous No Growth Day 1 Anaerobic Blood Culture - Preliminary No Growth Day 1 07/05/19 12:03 Aerobic Blood Culture - Preliminary Blood Venous No Growth Day 1 Anaerobic Blood Culture - Preliminary No Growth Day 1 Diagnostic Imaging: Abdominal U/S shows stone to gallbladder neck but no hepatic abnormality. Assess/Plan/Problems-Billing Assessment: Pt is a 69yo female with PMHx significant for psoriatic arthritis, DM II, and CKD III. She was presented to the ED on 07/05 for a hx of 2-3 weeks of worsening joint pain and stiffness to her R knee and her L shoulder. She was admitted to the medical unit. Received steroid injection to R knee, doing much better. - Patient Problems (1) Joint pain Status: Acute Code(s): M25.50 - PAIN IN UNSPECIFIED JOINT SNOMED Code(s): 79865119 Comment: OA vs psoriatic arthritis flare. Improved from prior reports, rheumatology consulted this morning and did steroid injection into R knee. Outpatient PT ordered to evaluate and treat R knee and L shoulder. Will follow- up as outpt with rheumatology. She can continue her usual regimen of Humira per rheumatology. (2) Diabetes type 2, controlled Status: Acute Code(s): E11.9 - TYPE 2 DIABETES MELLITUS WITHOUT COMPLICATIONS SNOMED Code(s): 59406951 Comment: Chronic condition. Last A1C 6.7 from 04/2019. Serum glucose 356 on the night of 07/05, had received a dose of PO prednisone in the ED prior. AC values 171 and 185 today. Can follow up with her PCP. Can continue all usual diabetic medications at discharge. (3) CKD (chronic kidney disease) stage 3, GFR 30-59 ml/min Status: Acute Code(s): N18.3 - CHRONIC KIDNEY DISEASE, STAGE 3 (MODERATE) SNOMED Code(s): 561304956 Comment: GFR 45.4. At baseline. Can follow-up with PCP as needed. (4) Elevated alanine aminotransferase (ALT) level Status: Acute Code(s): R74.0 - NONSPEC ELEV OF LEVELS OF TRANSAMNS & LACTIC ACID DEHYDRGNSE SNOMED Code(s): 689332700 Comment: Likely due to being on Humira. RUQ U/S obtained, no hepatic abnormalities. Can follow with dermatology about this as they are prescribing. (5) Elevated serum aspartate aminotransferase level Status: Acute Code(s): R74.0 - NONSPEC ELEV OF LEVELS OF TRANSAMNS & LACTIC ACID DEHYDRGNSE SNOMED Code(s): 453895611 Comment: Likely due to being on Humira. RUQ U/S obtained, no hepatic abnormalities. Can follow with dermatology about this as they are prescribing. (6) Hyponatremia Status: Acute Code(s): E87.1 - HYPO-OSMOLALITY AND HYPONATREMIA SNOMED Code( s): 51080521 Comment: Na 130 on arrival and this morning. She has been in pain which can be a potential cause of SIADH. She also has CKD III which could be a contributing factor. She can follow-up with her PCP as necessary. Control pain - she has been given a steroid injection to her R knee which may help to alleviate her pain and could potentially help reverse hyponatremia if SIADH is a contributing factor. (7) Hypertension Status: Acute Code(s): I10 - ESSENTIAL (PRIMARY) HYPERTENSION SNOMED Code(s) : 04174430 Comment: Mild elevations on BP during hospital visit. Not on any BP lowering medications. Could be in relation to prednisone dosed in the ED. Instructed to record BPs at home and follow up with PCP. Status and Disposition: Pt to be discharged home. Condition improved and stable. Discharge plan: See diagnoses above for specific discharge plans for each issue Diet - Continue with her regular diet, try to remain low in carbs and sugars Activity - Increase as tolerated back to baseline Return precautions - return for intractable pain, any unusual SOB or CP Medications - continue with usual home medication regimen Time spent: approximately 60 minutes was spent on this discharge, over half of that face to face with the patient Attending: Kasey Yang
[2019-07-08 15:45] LABS: Complement C3 154 mg/dL (75 - 175)
[2019-07-08 16:13] LABS: JO-1 Antibody <0.2 U; RNP Antibody, IgG 0.3 U; SS-A/Ro Antibody <0.2 U; SS-B/La Antibody <0.2 U; Sm (Smith) IgG Antibody 1.7 U
[2019-07-08 17:08] LABS: Immunoglobulin E 15.8 kU/L (<= 214)
[2019-07-08 18:02] LABS: Immunoglobulin A 363 mg/dL (61 - 356); Immunoglobulin M 109 mg/dL (37 - 286)
[2019-07-08 18:20] LABS: Immunoglobulin G 4840 mg/dL (767 - 1590)
[2019-07-09 12:07] LABS: Smooth Muscle Antibody Negative (Negative)
== END 2019-07-06 17:00 | disposition home or self-care (01) ==
LOC: ED 11:15 → MED 17:19
PROVIDERS: ADMIT Internal Medicine; ATTEND Internal Medicine
DX: L40.50 Arthropathic psoriasis, unspecified (principal); M25.50 Pain in unspecified joint; E11.22 Type 2 diabetes mellitus with diabetic chronic kidney disease; N18.3 Chronic kidney disease, stage 3 (moderate); Z79.4 Long term (current) use of insulin; Z79.899 Other long term (current) drug therapy; E87.1 Hypo-osmolality and hyponatremia
CPT/HCPCS: 36415; 76705; 80053; 80061; 82248; 82728; 82784; 82785; 83540; 83550; 83605; 84155; 84165; 84484; 85025; 85610; 85652; 85730; 86038; 86140; 86160; 86225; 86235; 86255; 87040; 96372; 96374; 96376; 99285; A9270-GY; G0378; J1644; J1885; J2270; J3301; J7512

== ENCOUNTER 2019-08-20 20:48 | Emergency (ER) | payer MEDICARE ==
[2019-08-20 20:58] VITALS: BP 219/87
--- OUTSIDE RECORDS SUMMARY | 2019-08-20 21:14 | XMS REPORT | Continuity of Care Document ---
:1950 External Reference #:[id number] Author Name Ceasar Franklin MD (transmitted by agent of provider Ana Rhoades) Address [address] [place] [address] Problems Active Problems Provider Date Chronic kidney disease Daly Sneed MD Onset: 05/22/2018 Type 2 diabetes mellitus Daly Sneed MD Onset: 05/22/2018 Hypertensive chronic kidney disease with Daly Sneed MD Onset: 2017 stage 1 through stage 4 chronic kidney disease, or unspecified chronic kidney disease Psoriasis with arthropathy Daly Sneed MD Onset: 05/22/2018 Social History Type Date Description Comments Sex Unknown Tobacco Use Start: Unknown Patient has never smoked Smoking Status Reviewed: 07/17/19 Patient has never smoked Allergies, Adverse Reactions, Alerts Active Allergies Reaction Severity Comments Date Omitrax Heart palpitations, headache, diarrhea 10/15/2018 Medications Active Medications SIG Qnty Indications Ordering Date Provider Celecoxib take one cap by 90caps L40.50 Ceasar 200mg Capsules mouth daily for MD Rigoberto 0 arthritis pain Humira inject 40mg 2units Ceasar 40mg/0.4ML PSKT subcutaneously MD Rigoberto 0 every other week Hydroxychloroquine take one tab by 180tabs M32.9 Ceasar Sulfate mouth daily for one MD Rigoberto 0 200mg Tablets week, then increase to one tab twice daily thereafter Triamcinolone Acetonide Apply To Affected Unknown 0.1% Area On Elbows And 0 Cream Knees Once Daily To Twice A Day If Needed Nystatin Iron, [id number]/KARINA Diaz MD 0 Ointment Basaglar Kwvirgiliopen Bharat-Caridad 100Unit/ML Steph diaz 0 Solution Pen-Inject PA Metformin HCL Bharat-Hekto 1000mg Tablets Steph diaz, 0 RADHA Lorazepam Take One Tablet By Unknown 1mg Tablets Mouth Up To 3 Times 0 as Needed For Anxiety Maximum Daily Dose Three Tablets Immunizations Description No Information Available Vital Signs Date Vital Result Comment 07/17/2019 9:56am Height 59.75 inches 4'11.75" Weight 139.00 lb Heart Rate 101 /min BP Systolic 136 mmHg BP Diastolic 79 mmHg Body Temperature 96.9 F Pain Level 6 O2 % BldC Oximetry 98 % BMI (Body Mass Index) 27.4 kg/m2 10/15/2018 11:33am Weight 166.00 lb Heart Rate 71 /min BP Systolic 120 mmHg BP Diastolic 82 mmHg Results Description No Information Available Procedures Description No Information Available Medical Devices Description No Information Available Encounters Type Date Location Provider Dx Diagnosis Office Visit 06/11/2019 [facility] D[facility] AT Dieudonne Bush MD L40.0 Psoriasis 2:10p David vulgaris B35.4 Tinea corporis Office Visit 04/30/2019 3:50p [facility] AT Dieudonne Bush L40.0 Psoriasis David BAEZA vulgaris Office Visit 02/12/2019 9:50a [facility] AT Dieudonne Bush, L40.0 Psoriasis David BAEZA vulgaris Assessments Date Code Description Provider 07/17/2019 L40.50 Arthropathic psoriasis, unspecified Ceasar Franklin MD 07/17/2019 R76.0 Raised antibody titer Ceasar Franklin MD 07/17/2019 M32.9 Systemic lupus erythematosus, unspecified Ceasar Franklin MD 07/17/2019 Z79.899 Other extermination inspector (current) drug therapy Ceasar Franklin MD 07/17/2019 R10.13 Epigastric pain Ceasar Franklin MD 07/06/2019 M25.50 Pain in unspecified joint ALEX Tillman 07/06/2019 E87.1 Hypo-osmolality and hyponatremia ALEX Tillman 07/06/2019 R74.0 Nonspecific elevation of levels of ALEX Tillman transaminase and lactic acid dehydrogenase [LDH] 07/06/2019 I10 Essential (primary) hypertension ALEX Tillman 07/05/2019 M25.50 Pain in unspecified joint Beckymeredith Piña, GROUND WIRER 07/05/2019 E87.1 Hypo-osmolality and hyponatremia Becky Wang, GROUND WIRER 07/05/2019 R74.0 Nonspecific elevation of levels of Becky Piña, NAKITA transaminase and lactic acid dehydrogenase [LDH] 06/11/2019 L40.0 Psoriasis vulgaris Dieudonne Bush MD 06/11/2019 B35.4 Tinea corporis Dieudonne Bush MD 04/30/2019 L40.0 Psoriasis vulgaris Dieudonne Bush MD 02/12/2019 L40.0 Psoriasis vulgaris Dieudonne Bush MD Plan of Treatment Future Appointment(s):09/11/2019 3:00 pm - Ceasar Franklin MD at [facility]07/17/2019 - Ceasar Franklin MDL40.50 Arthropathic psoriasis, unspecifiedNew Medication:Celecoxib 200 mg - take one cap by mouth daily for arthritis painComments:Stop meloxicam, start celecoxibFollow up:f/u 6- 8 aeaigB22.0 Raised antibody ppfspZ42.9 Systemic lupus erythematosus, unspecifiedNew Medication:Hydroxychloroquine Sulfate 200 mg - take one tab by mouth daily for one week, then increase to one tab twice daily thereafterReferral:Papo Turner MD, WfwxwaarankunD70.899 Other jail (current) drug myycfibF33.13 Epigastric pain Functional Status Description No Information Available Mental Status Description No Information Available Referrals Refer to Dr Reason for Referral Status Appt Date Papo Turner MD Patient with history of Diabetes and also Created lupus now starting plaquenil. Please evaluate and treat with deference to her historical diabetes and whether the plaquenil eye exam can be followed and also please continue to follow for plaquenil eye exams as well. Thank you! [address] [place] [id number] [phone]
--- OUTSIDE RECORDS SUMMARY | 2019-08-20 21:14 | XMS REPORT | Continuity of Care Document ---
:1950 External Reference #:[id number] Author Name Ceasar Franklin MD (transmitted by agent of provider Ana Rhoades) Address [address] [place] [address] Problems Active Problems Provider Date Chronic kidney [...] Twice A Day If Needed Nystatin Iron, [id number]/KARINA Diaz MD 0 Ointment Basaglar Kwvirgiliopen Bharat-Caridad [...] Location Provider Dx Diagnosis Office Visit 06/11/2019 [facility] Dermatology AT Dieudonne Bush MD L40.0 Psoriasis 2:10p David vulgaris B35.4 Tinea corporis Office Visit 04/30/2019 3:50p [facility] AT Dieudonne Bush L40.0 Psoriasis David BAEZA vulgaris Office Visit 02/12/2019 9:50a [facility] AT Dieudonne Bush, L40.0 Psoriasis David BAEZA vulgaris Assessments Date Code Description Provider 07/17/2019 L40.50 Arthropathic psoriasis, unspecified Ceasar Franklin MD 07/17/2019 R76.0 Raised antibody titer Ceasar Franklin MD 07/17/2019 M32.9 Systemic lupus erythematosus, unspecified Ceasar Franklin MD 07/17/2019 Z79.899 Other terminal operations supervisor (current) drug therapy Ceasar Franklin MD 07/17/2019 R10.13 Epigastric pain Ceasar Franklin MD 07/06/2019 M25.50 Pain in unspecified joint ALEX Tillman 07/06/2019 E87.1 Hypo-osmolality and hyponatremia ALEX Tillman 07/06/2019 R74.0 Nonspecific elevation of levels of ALEX Tillman transaminase and lactic acid dehydrogenase [LDH] 07/06/2019 I10 Essential (primary) hypertension ALEX Tillman 07/05/2019 M25.50 Pain in unspecified joint Beckymeredith Piña, HOROLOGIST 07/05/2019 E87.1 Hypo-osmolality and hyponatremia Becky Wang, HOROLOGIST 07/05/2019 R74.0 Nonspecific elevation of levels of Becky Piña, NAKITA transaminase and lactic acid dehydrogenase [LDH] 06/11/2019 L40.0 Psoriasis vulgaris Dieudonne Bush MD 06/11/2019 B35.4 Tinea corporis Dieudonne Bush MD 04/30/2019 L40.0 Psoriasis vulgaris Dieudonne Bush MD 02/12/2019 L40.0 Psoriasis vulgaris Dieudonne Bush MD Plan of Treatment Future Appointment(s):09/11/2019 3:00 pm - Ceasar Franklin MD at [facility]07/17/2019 - Ceasar Franklin MDL40.50 Arthropathic psoriasis, unspecifiedNew Medication:Celecoxib 200 mg - take one cap by mouth daily for arthritis painComments:Stop meloxicam, start celecoxibFollow up:f/u 6- 8 oqvvuE40.0 Raised antibody xuqzaB36.9 Systemic lupus erythematosus, unspecifiedNew Medication:Hydroxychloroquine Sulfate 200 mg - take one tab by mouth daily for one week, then increase to one tab twice daily thereafterReferral:Papo Turner MD, DjirrwvkinaseH82.899 Other [place] (current[facility] drug fgbwzpnV48.13 Epigastric pain Functional Status Description No Information [...] plaquenil eye exams as well. Thank you! [address] [place] [id number] [phone]
--- OUTSIDE RECORDS SUMMARY | 2019-08-20 21:14 | XMS REPORT | Continuity of Care Document ---
:1950 External Reference #:[id number] Author Name Ceasar Franklin MD (transmitted by agent of provider Ana Rhoades) Address [address] [place] [address] Problems Active Problems Provider Date Chronic kidney [...] Twice A Day If Needed Nystatin Iron, [id number]/KARINA Diaz MD 0 Ointment Basaglar Kwvirgiliopen Bharat-Caridad [...] Location Provider Dx Diagnosis Office Visit 06/11/2019 [facility] Dermatology AT Dieudonne Bush MD L40.0 Psoriasis 2:10p David vulgaris B35.4 Tinea corporis Office Visit 04/30/2019 3:50p [facility] Dermatology AT Dieudonne Bush L40.0 Psoriasis David BAEZA vulgaris Office Visit 02/12/2019 9:50a [facility] Dermatology AT Dieudonne Bush, L40.0 Psoriasis David BAEZA vulgaris Assessments Date Code Description Provider 07/17/2019 L40.50 Arthropathic psoriasis, unspecified Ceasar Franklin MD 07/17/2019 R76.0 Raised antibody titer Ceasar Franklin MD 07/17/2019 M32.9 Systemic lupus erythematosus, unspecified Ceasar Franklin MD 07/17/2019 Z79.899 Other intermediate accountant (current) drug therapy Ceasar Franklin MD 07/17/2019 R10.13 Epigastric pain Ceasar Franklin MD 07/06/2019 M25.50 Pain in unspecified joint ALEX Tillman 07/06/2019 E87.1 Hypo-osmolality and hyponatremia ALEX Tillman 07/06/2019 R74.0 Nonspecific elevation of levels of ALEX Tillman transaminase and lactic acid dehydrogenase [LDH] 07/06/2019 I10 Essential (primary) hypertension ALEX Tillman 07/05/2019 M25.50 Pain in unspecified joint Beckymeredith Piña, BOOKS SALESPERSON 07/05/2019 E87.1 Hypo-osmolality and hyponatremia Becky Wang, BOOKS SALESPERSON 07/05/2019 R74.0 Nonspecific elevation of levels of Becky Piña, NAKITA transaminase and lactic acid dehydrogenase [LDH] 06/11/2019 L40.0 Psoriasis vulgaris Dieudonne Bush MD 06/11/2019 B35.4 Tinea corporis Dieudonne Bush MD 04/30/2019 L40.0 Psoriasis vulgaris Dieudonne Bush MD 02/12/2019 L40.0 Psoriasis vulgaris Dieudonne Bush MD Plan of Treatment Future Appointment(s):09/11/2019 3:00 pm - Ceasar Franklin MD at [facility]07/17/2019 - Ceasar Franklin MDL40.50 Arthropathic psoriasis, unspecifiedNew Medication:Celecoxib 200 mg - take one cap by mouth daily for arthritis painComments:Stop meloxicam, start celecoxibFollow up:f/u 6- 8 ygiutT33.0 Raised antibody nbcfiY88.9 Systemic lupus erythematosus, unspecifiedNew Medication:Hydroxychloroquine Sulfate 200 mg - take one tab by mouth daily for one week, then increase to one tab twice daily thereafterReferral:Papo Turner MD, HpndfmsbnexybM08.899 Other alf (current) drug xynjjxzL90.13 Epigastric pain Functional Status Description No Information [...] plaquenil eye exams as well. Thank you! [address] [place] [id number] [phone]
--- OUTSIDE RECORDS SUMMARY | 2019-08-20 21:14 | XMS REPORT | Continuity of Care Document ---
:1950 External Reference #:[id number] Author Name Jaquan Barber MD Address [address] [place] [address] Care Team Providers Name Role Phone Terry Hart MD - Internal Medicine Care Team Information Assistant Manager Quality Management [phone] Problems Active Problems Provider Date Localized, primary osteoarthritis Jaquan Barber MD Onset: 05/22/2017 Knee pain Jaquan Barber MD Onset: 05/22/2017 Knee joint effusion Jaquan Barber MD Onset: 05/22/2017 Chondromalacia of patella Jaquan Barber MD Onset: 05/22/2017 Arthroplasty of knee Jaquan Barber MD Onset: 11/27/2017 Social History Type Date Description Comments Sex Unknown ETOH Use 08/02/2019 Denies alcohol use Tobacco Use Reviewed: 08/02/19 Patient has never smoked Document: 07/28/17 - .MA Intake Note Smoking Status Reviewed: 08/02/19 Patient has never smoked Document: - .MA Intake Note Allergies, Adverse Reactions, Alerts Description No Known Drug Allergies Medications Active Medications SIG Qnty Indications Ordering Provider Date Amlodipine Besylate Terry Hart MD 10mg Tablets Immunizations Description No Information Available Vital Signs Date Vital Result Comment 08/02/2019 9:21am Height 77 inches 6'5" per pt Weight 215.00 lb per pt BMI (Body Mass Index) 25.5 kg/m2 Pain Level 0 08/02/2018 8:50am Height 66 inches 5'6" Weight 205.00 lb BMI (Body Mass Index) 33.1 kg/m2 Pain Level 0 Results Description No Information Available Procedures Description No Information Available Medical Devices Description No Information Available Encounters Description No Information Available Assessments Date Code Description Provider 08/02/2019 Z96.652 Presence of left artificial knee joint Jaquan Barber MD Plan of Treatment 08/02/2019 - Jaquan Barber MDZ96.652 Presence of left artificial knee jointComments:The patient presents status post left total knee arthroplasty for yearly visit. X-rays do not demonstrate any significant changes. Range of motion is excellent. Patient is happy with result. Followup in 1 year for repeat x-rays. Functional Status Description No Information Available Mental Status Description No Information Available Referrals Description No Information Available
== END 2019-08-20 22:57 | disposition left against medical advice (07) ==
LOC: ED 20:48
DX: R11.10 Vomiting, unspecified (principal); Z53.21 Procedure and treatment not carried out due to patient leaving prior to being seen by health care provider
CPT/HCPCS: 99281

== ENCOUNTER 2020-10-01 14:16 | Observation (INO) ==
[2020-10-01 15:12] LABS: ABS Lymphocytes 1.7 10^3/ul (1.0-4.8); ABS Monocytes 0.3 10^3/ul (0-0.8); ABS Neutrophils 3.4 10^3/ul (1.5-7.7); Eosinophil % 0.8 %; Hematocrit 32 % (35-47); Hemoglobin 10.6 g/dL (12.0-16.0); Lymphocyte % 30.7 %; Mean Corpuscular HGB Conc 33 g/dL (31-36); Mean Corpuscular Hemoglobin 31 pg (27-31); Mean Corpuscular Volume 93 fL (80-97); Mean Platelet Volume 7.4 fL (7.4-10.4); Nucleated Red Blood Cells % 0.1; Platelet Count 269 10^3/uL (150-450); Red Blood Count 3.43 10^6 /uL (3.70-4.87); Red Cell Distribution Width 14 % (10-15); White Blood Count 5.4 10^3/uL (3.5-10.8)
[2020-10-01 15:19] LABS: INR 1.12 (0.82-1.09)
[2020-10-01 15:42] LABS: ALT 59 U/L (7-52); AST 67 U/L (13-39); Albumin 3.2 g/dL (3.2-5.2); Albumin/Globulin Ratio 0.5 (1-3); Alkaline Phosphatase 61 U/L (34-104); Anion Gap 4 mmol/L (2-11); Blood Urea Nitrogen 30 mg/dL (6-24); CO2 Carbon Dioxide 24 mmol/L (22-32); Calcium 9.4 mg/dL (8.6-10.3); Chloride 103 mmol/L (101-111); EGFR African American 53.7 (>60); EGFR Non-African American 44.4 (>60); Globulin 6.5 g/dL (2-4); Glucose 214 mg/dL (70-100); Potassium 4.9 mmol/L (3.5-5.0); Sodium 131 mmol/L (135-145); Total Protein 9.7 g/dL (6.4-8.9)
[2020-10-01] MEDS ORDERED: Iodixanol (CONTRAST) 320 MG/ML 100 ML SDV IV ONE (17:06)
[2020-10-01] MEDS ORDERED: Ondansetron 4 mg VIAL 2 MG/ML 2 ml VIAL IV PRN (17:16)
[2020-10-01] MEDS ORDERED: NS 0.9% 1000 ml BAG 1,000 ML IV SCH (17:24)
[2020-10-01] MEDS ORDERED: Heparin DRIP 25,000 UNITS BAG 25,000 UNITS/500 ML BAG IV SCH ×2 (17:30→20:00)
[2020-10-01] MEDS ORDERED: Dextrose 50% Syringe 50 ml 25 GM/50 ML SYRINGE IV PUSH PRN (17:30)
[2020-10-01] MEDS ORDERED: Triamcinolone 0.025% OINT 15 GM TUBE TOPICAL PRN (17:31)
[2020-10-01] MEDS ORDERED: Metoprolol Tartrate 5 mg VIAL 5 ml VIAL (1 mg/ml) IV ONE (17:34)
[2020-10-01] MEDS ORDERED: Heparin 5000 UNITS/ML 1 mL VIAL IV SCH ×2 (18:00)
[2020-10-01] MEDS ORDERED: Al Hydrox/Mg Hydrox/Simet LIQ 30 ML UDC PO ONE (18:12)
[2020-10-01 18:53] LABS: Blood Urea Nitrogen 28 mg/dL (6-24); Cholesterol 139 mg/dL; EGFR African American 56.4 (>60); EGFR Non-African American 46.6 (>60); HDL Cholesterol 20.9 mg/dL; LDL Cholesterol 69 mg/dL; Triglycerides 246 mg/dL
[2020-10-01 19:42] LABS: Troponin I 0.11 ng/mL (<0.03)
[2020-10-01] MEDS ORDERED: Insulin GLARGINE 100 un/ml 10 ml VIAL SUBCUT SCH (20:00)
[2020-10-01 21:58] LABS: ABS Eosinophils 0.1 10^3/ul (0-0.6); ABS Lymphocytes 2.2 10^3/ul (1.0-4.8); ABS Monocytes 0.3 10^3/ul (0-0.8); ABS Neutrophils 3.3 10^3/ul (1.5-7.7); Eosinophil % 1.5 %; Hematocrit 33 % (35-47); Lymphocyte % 37.8 %; Mean Corpuscular HGB Conc 34 g/dL (31-36); Mean Corpuscular Hemoglobin 32 pg (27-31); Mean Corpuscular Volume 94 fL (80-97); Mean Platelet Volume 7.7 fL (7.4-10.4); Platelet Count 259 10^3/uL (150-450); Red Blood Count 3.47 10^6 /uL (3.70-4.87); Red Cell Distribution Width 15 % (10-15); White Blood Count 5.9 10^3/uL (3.5-10.8)
[2020-10-01 22:21] LABS: Troponin I 0.14 ng/mL (<0.03)
[2020-10-01] MEDS: Nystatin TOP POWDER 15 GM BTL TOPICAL SCH (22:22)
[2020-10-02 03:22] LABS: Troponin I 0.13 ng/mL (<0.03)
[2020-10-02] MEDS ORDERED: Aspirin EC 81 mg TAB.EC (enteric coated) PO SCH (09:00)
[2020-10-02] MEDS ORDERED: Regadenoson 0.4 MG/5 ML SYRINGE ONE (09:07)
[2020-10-02] MEDS ORDERED: Aminophylline 25 MG/ML VIAL ONE (09:07)
[2020-10-02 10:00] LABS: ABS Eosinophils 0.1 10^3/ul (0-0.6); ABS Lymphocytes 2.6 10^3/ul (1.0-4.8); ABS Monocytes 0.3 10^3/ul (0-0.8); ABS Neutrophils 2.9 10^3/ul (1.5-7.7); Eosinophil % 1.3 %; Hematocrit 31 % (35-47); Hemoglobin 10.3 g/dL (12.0-16.0); Lymphocyte % 44.4 %; Mean Corpuscular HGB Conc 33 g/dL (31-36); Mean Corpuscular Hemoglobin 31 pg (27-31); Mean Corpuscular Volume 93 fL (80-97); Mean Platelet Volume 7.6 fL (7.4-10.4); Nucleated Red Blood Cells % 0.1; Platelet Count 290 10^3/uL (150-450); Red Blood Count 3.37 10^6 /uL (3.70-4.87); Red Cell Distribution Width 14 % (10-15); White Blood Count 5.8 10^3/uL (3.5-10.8)
[2020-10-02 10:36] LABS: Albumin 3.2 g/dL (3.2-5.2); Albumin/Globulin Ratio 0.5 (1-3); EGFR African American 56.4 (>60); EGFR Non-African American 46.6 (>60); Globulin 6.6 g/dL (2-4); Magnesium 1.5 mg/dL (1.9-2.7); Potassium 4.1 mmol/L (3.5-5.0); Total Bilirubin 0.3 mg/dL (0.2-1.0); Total Protein 9.8 g/dL (6.4-8.9)
[2020-10-02 11:48] VITALS: BP 142/62
[2020-10-02] MEDS: Nystatin TOP POWDER 15 GM BTL TOPICAL SCH (13:39)
[2020-10-02] MEDS ORDERED: Magnesium Sulfate IV 3 GM in NS 0.9% 100 ml BAG 100 ML IVPB ONE (14:21)
[2020-10-03] MEDS ORDERED: CMCS:Meloxicam 7.5 mg TAB (NF) PO SCH (09:00)
== END 2020-10-02 18:07 | disposition home or self-care (01) ==
LOC: ED 14:16 → MEDTELE 14:16
PROVIDERS: ADMIT Hospitalist; ATTEND Hospitalist

== ENCOUNTER 2020-10-29 12:53 | Inpatient (IN) ==
[2020-10-29 14:07] LABS: ABS Eosinophils 0.1 10^3/ul (0-0.6); ABS Lymphocytes 2.3 10^3/ul (1.0-4.8); ABS Monocytes 0.4 10^3/ul (0-0.8); ABS Neutrophils 5.1 10^3/ul (1.5-7.7); Eosinophil % 0.9 %; Hematocrit 34 % (35-47); Hemoglobin 11.2 g/dL (12.0-16.0); Mean Corpuscular HGB Conc 33 g/dL (31-36); Mean Corpuscular Hemoglobin 31 pg (27-31); Mean Corpuscular Volume 94 fL (80-97); Mean Platelet Volume 7.5 fL (7.4-10.4); Platelet Count 352 10^3/uL (150-450); Red Blood Count 3.59 10^6 /uL (3.70-4.87); Red Cell Distribution Width 15 % (10-15); White Blood Count 7.8 10^3/uL (3.5-10.8)
[2020-10-29 14:26] LABS: Albumin 3.3 g/dL (3.2-5.2); Albumin/Globulin Ratio 0.5 (1-3); Calcium 9.3 mg/dL (8.6-10.3); EGFR Non-African American 37.2 (>60); Globulin 6.6 g/dL (2-4); Potassium 4.9 mmol/L (3.5-5.0); Total Bilirubin 0.3 mg/dL (0.2-1.0); Total Protein 9.9 g/dL (6.4-8.9)
[2020-10-29 14:27] LABS: Troponin I 0.01 ng/mL (<0.03)
[2020-10-29] MEDS ORDERED: NS 0.9% 1000 ml BAG 1,000 ML IV ONE (15:47)
[2020-10-29] MEDS ORDERED: Iodixanol (CONTRAST) 320 MG/ML 100 ML SDV IV ONE (16:02)
[2020-10-29 17:59] LABS: Troponin I 0.05 ng/mL (<0.03)
[2020-10-29 19:11] LABS: Troponin I 0.08 ng/mL (<0.03)
[2020-10-29] MEDS ORDERED: Heparin DRIP 25,000 UNITS BAG 25,000 UNITS/500 ML BAG IV SCH (19:45)
[2020-10-29] MEDS ORDERED: Heparin 5000 UNITS/ML 1 mL VIAL IV SCH (20:00)
[2020-10-29 20:12] LABS: ABS Eosinophils 0.1 10^3/ul (0-0.6); ABS Lymphocytes 2.5 10^3/ul (1.0-4.8); ABS Monocytes 0.4 10^3/ul (0-0.8); ABS Neutrophils 3.6 10^3/ul (1.5-7.7); Eosinophil % 1.5 %; Hematocrit 29 % (35-47); Hemoglobin 9.9 g/dL (12.0-16.0); Lymphocyte % 37.4 %; Mean Corpuscular HGB Conc 34 g/dL (31-36); Mean Corpuscular Hemoglobin 32 pg (27-31); Mean Corpuscular Volume 94 fL (80-97); Mean Platelet Volume 7.6 fL (7.4-10.4); Platelet Count 285 10^3/uL (150-450); Red Blood Count 3.13 10^6 /uL (3.70-4.87); Red Cell Distribution Width 14 % (10-15); White Blood Count 6.6 10^3/uL (3.5-10.8)
[2020-10-29 20:30] LABS: EGFR African American 48.1 (>60); EGFR Non-African American 39.8 (>60)
[2020-10-29] MEDS ORDERED: Dextrose 50% Syringe 50 ml 25 GM/50 ML SYRINGE IV PUSH PRN (21:27)
[2020-10-29] MEDS ORDERED: [UNRECOGNIZED DRUG - OTHER] SUBCUT SCH (21:30)
[2020-10-29 22:31] LABS: Troponin I 0.26 ng/mL (<0.03)
[2020-10-29] MEDS ORDERED: hydrALAZINE 20 mg/ml 1 ML Vial IV IV SLOW PU ONE (23:00)
[2020-10-29] MEDS: NS 0.9% 1000 ml BAG 1,000 ML IV SCH (23:48)
[2020-10-30] MEDS: Insulin GLARGINE 100 un/ml 10 ml VIAL SUBCUT SCH (00:04)
[2020-10-30] MEDS ORDERED: Morphine 2 MG/ML SYRINGE IV PRN ×3 (00:52→03:33)
[2020-10-30] MEDS: Nystatin TOP POWDER 15 GM BTL TOPICAL SCH ×4 (01:00→16:23)
[2020-10-30] MEDS ORDERED: Nitro 2% OINT (Nitroglycerin) 1 INCH/PAK ONE (01:45)
[2020-10-30] MEDS ORDERED: Nitro 2% OINT (Nitroglycerin) 1 INCH/PAK TOPICAL SCH (02:00)
[2020-10-30 03:01] LABS: Troponin I 0.32 ng/mL (<0.03)
[2020-10-30 07:47] LABS: ABS Eosinophils 0.1 10^3/ul (0-0.6); ABS Lymphocytes 2.2 10^3/ul (1.0-4.8); ABS Monocytes 0.3 10^3/ul (0-0.8); ABS Neutrophils 3.3 10^3/ul (1.5-7.7); Eosinophil % 0.9 %; Hematocrit 29 % (35-47); Hemoglobin 9.9 g/dL (12.0-16.0); Lymphocyte % 37.7 %; Mean Corpuscular HGB Conc 34 g/dL (31-36); Mean Corpuscular Hemoglobin 32 pg (27-31); Mean Corpuscular Volume 94 fL (80-97); Mean Platelet Volume 7.6 fL (7.4-10.4); Nucleated Red Blood Cells % 0.1; Platelet Count 270 10^3/uL (150-450); Red Blood Count 3.12 10^6 /uL (3.70-4.87); Red Cell Distribution Width 15 % (10-15); White Blood Count 5.9 10^3/uL (3.5-10.8)
[2020-10-30 07:50] LABS: Calcium 8.8 mg/dL (8.6-10.3); Potassium 4.1 mmol/L (3.5-5.0)
[2020-10-30 07:56] LABS: EGFR African American 58.8 (>60); EGFR Non-African American 48.6 (>60)
[2020-10-30] MEDS: NS 0.9% 1000 ml BAG 1,000 ML IV SCH (09:52)
[2020-10-30] MEDS: Aspirin EC 81 mg TAB.EC (enteric coated) PO SCH (09:54)
[2020-10-30] MEDS ORDERED: nitroGLYCERIN DRIP 25,000 MCG/250 ML BTL ONE (10:06)
[2020-10-30] MEDS ORDERED: VERAPAMIL 2.5 MG/ML 2 ML VIAL ** 5 mg/2 ml ONE (10:06)
[2020-10-30] MEDS ORDERED: fentaNYL 100 mcg/2 ml 50 MCG/ML VIAL ONE (10:06)
[2020-10-30] MEDS ORDERED: Midazolam 5 mg/5 ml VIAL 1 mg/ml 5 ml VIAL (5 mg) ONE (10:06)
[2020-10-30] MEDS ORDERED: Lidocaine 1% VIAL 10 MG/ML VIAL ONE (10:06)
[2020-10-30] MEDS ORDERED: Heparin 2 UNITS/ML 1000 mls 2,000 ML IV ONE (10:06)
[2020-10-30] MEDS ORDERED: Heparin 1,000 UNIT/ML 10 ml (10,000 UNITS) CATHLAB/DIALYSIS ONE (10:06)
[2020-10-30] MEDS ORDERED: Iodixanol 320 (CONTRAST) 100 ML SDV ONE ×3 (10:07→11:55)
[2020-10-30 10:38] LABS: Troponin I 0.32 ng/mL (<0.03)
[2020-10-30] MEDS ORDERED: Bivalirudin 250 MG VIAL ONE (11:49)
[2020-10-30] MEDS ORDERED: Metoprolol Tartrate 5 mg VIAL 5 ml VIAL (1 mg/ml) ONE (12:13)
[2020-10-30] MEDS ORDERED: Flumazenil 0.5 mg/5 ml 0.1 MG/ML 5 ml VIAL ONE (12:41)
[2020-10-30] MEDS ORDERED: Dextrose 50% Syringe 50 ml 25 GM/50 ML SYRINGE ONE (12:43)
[2020-10-30] MEDS ORDERED: NS 0.9% 1000 ml BAG 1,000 ML IV SCH (12:45)
[2020-10-30] MEDS ORDERED: Naloxone 0.4 mg VIAL 0.4 mg/ml 1 ml VIAL IV PUSH ONE ×2 (13:44→20:36)
[2020-10-30] MEDS ORDERED: Ondansetron 4 mg VIAL 2 MG/ML 2 ml VIAL IV PRN (13:45)
[2020-10-30 14:10] LABS: Magnesium 1.3 mg/dL (1.9-2.7)
[2020-10-30 14:22] LABS: Troponin I 0.28 ng/mL (<0.03)
[2020-10-30] MEDS ORDERED: Magnesium Sulfate IV 3 GM in NS 0.9% 100 ml BAG 100 ML IVPB ONE (15:40)
[2020-10-30] MEDS ORDERED: Magnesium Sulf 4 GM/100 ML IV 4,000 MG/100 ML BAG IVPB ONE (15:44)
[2020-10-30] MEDS ORDERED: Meperidine 50 mg/ml SYRINGE 1 ml IV ONE (17:21)
[2020-10-30] MEDS ORDERED: hydrALAZINE 20 mg/ml 1 ML Vial IV IV SLOW PU PRN (20:29)
[2020-10-30] MEDS ORDERED: Metoprolol Tartrate 5 mg VIAL 5 ml VIAL (1 mg/ml) IV ONE ×2 (20:58→22:41)
[2020-10-31 00:59] LABS: Urine Appearance Clear; Urine Bilirubin Negative (Negative); Urine Blood 3+ (Negative); Urine Color Yellow; Urine Glucose 1+(50 mg/dL) (Negative); Urine Ketones Negative (Negative); Urine Nitrite Negative (Negative); Urine Protein 2+(100 mg/dL) (Negative); Urine Specific Gravity 1.019 (1.002-1.030); Urine Urobilinogen Negative (Negative)
[2020-10-31 01:06] LABS: Urine Bacteria 1+ (Absent); Urine Red Blood Cell 2+(6-10/hpf) (Absent); Urine Squamous Epithelial Cell Present (Absent); Urine White Blood Cell Trace(0-5/hpf) (Absent)
[2020-10-31] MEDS ORDERED: Dextrose 50% Syringe 50 ml 25 GM/50 ML SYRINGE IV PUSH ONE (01:30)
[2020-10-31] MEDS: Insulin GLARGINE 100 un/ml 10 ml VIAL SUBCUT SCH ×2 (01:59→21:39)
[2020-10-31] MEDS: Nystatin TOP POWDER 15 GM BTL TOPICAL SCH ×4 (02:06→21:42)
[2020-10-31 06:17] LABS: ABS Lymphocytes 1.1 10^3/ul (1.0-4.8); ABS Monocytes 0.5 10^3/ul (0-0.8); ABS Neutrophils 6.6 10^3/ul (1.5-7.7); Eosinophil % 0.1 %; Hematocrit 27 % (35-47); Hemoglobin 9.1 g/dL (12.0-16.0); Lymphocyte % 13.2 %; Mean Corpuscular HGB Conc 34 g/dL (31-36); Mean Corpuscular Hemoglobin 32 pg (27-31); Mean Corpuscular Volume 92 fL (80-97); Mean Platelet Volume 7.4 fL (7.4-10.4); Platelet Count 335 10^3/uL (150-450); Red Blood Count 2.87 10^6 /uL (3.70-4.87); Red Cell Distribution Width 15 % (10-15); White Blood Count 8.1 10^3/uL (3.5-10.8)
[2020-10-31 06:25] LABS: INR 1.26 (0.82-1.09)
[2020-10-31 06:34] LABS: Albumin 2.9 g/dL (3.2-5.2); Albumin/Globulin Ratio 0.5 (1-3); Calcium 8.5 mg/dL (8.6-10.3); EGFR African American 55.9 (>60); EGFR Non-African American 46.2 (>60); Globulin 5.9 g/dL (2-4); Phosphorus 3.9 mg/dL (2.5-5.0); Potassium 3.9 mmol/L (3.5-5.0); Total Bilirubin 0.5 mg/dL (0.2-1.0); Total Protein 8.8 g/dL (6.4-8.9)
[2020-10-31] MEDS ORDERED: Zosyn per Pharmacy NOTE FOLLOW UP SCH (08:00)
[2020-10-31] MEDS ORDERED: Piperacillin/Tazobac ADVAN 3.375 GM in NS 0.9% 100 ml BAG 100 ML IV ONE (08:30)
[2020-10-31] MEDS: NORMOSOL-R pH 7.4 1000 mL BAG 1,000 ML IV SCH ×2 (09:49→23:12)
[2020-10-31] MEDS ORDERED: Linezolid 600 MG IVPREMIX(*) 600 MG/300 ML BAG IVPB SCH (10:00)
[2020-10-31] MEDS: Aspirin EC 81 mg TAB.EC (enteric coated) PO SCH (10:38)
[2020-10-31] MEDS ORDERED: ZOSYN 3.375 GM Q8H per EXTENDED INFUSION IV SCH (13:30)
[2020-10-31] MEDS: ceFAZolin 1 GM in Dextrose 1 GM/50 ML BAG IVPB SCH (17:49)
[2020-11-01] MEDS: ceFAZolin 1 GM in Dextrose 1 GM/50 ML BAG IVPB SCH ×2 (02:21→09:01)
[2020-11-01 04:58] LABS: Hematocrit 23 % (35-47); Hemoglobin 7.8 g/dL (12.0-16.0); Mean Corpuscular HGB Conc 34 g/dL (31-36); Mean Corpuscular Hemoglobin 31 pg (27-31); Mean Corpuscular Volume 92 fL (80-97); Mean Platelet Volume 7.1 fL (7.4-10.4); Platelet Count 250 10^3/uL (150-450); Red Blood Count 2.55 10^6 /uL (3.70-4.87); Red Cell Distribution Width 15 % (10-15); White Blood Count 9.1 10^3/uL (3.5-10.8)
[2020-11-01 05:19] LABS: Magnesium 1.7 mg/dL (1.9-2.7); Phosphorus 2.5 mg/dL (2.5-5.0)
[2020-11-01 08:45] LABS: Calcium 8.2 mg/dL (8.6-10.3); EGFR African American 54.3 (>60); EGFR Non-African American 44.8 (>60); Potassium 3.2 mmol/L (3.5-5.0)
[2020-11-01] MEDS: Nystatin TOP POWDER 15 GM BTL TOPICAL SCH ×3 (08:59→21:08)
[2020-11-01] MEDS ORDERED: Potassium Chloride LIQUID 20 MEQ/15 ML LIQUID PO ONE ×2 (09:36→09:38)
[2020-11-01] MEDS ORDERED: KCL 20 MEQ/100 ML IVPREMIX 20 MEQ/100 ML BAG IV ONE (09:37)
[2020-11-01] MEDS ORDERED: Magnesium Sulfate IV 3 GM in NS 0.9% 100 ml BAG 100 ML IVPB ONE (10:00)
[2020-11-01] MEDS: Oxacillin 2 GM in NS 0.9% 100 ML BAG IVPB SCH ×3 (16:47→23:16)
[2020-11-01 16:51] LABS: Albumin 2.6 g/dL (3.2-5.2); Albumin/Globulin Ratio 0.5 (1-3); Globulin 5.1 g/dL (2-4); Indirect Bilirubin 0.3 mg/dL (0.3-1.0); Total Bilirubin 0.4 mg/dL (0.2-1.0); Total Protein 7.7 g/dL (6.4-8.9)
[2020-11-01 18:32] LABS: Calcium 7.9 mg/dL (8.6-10.3); Potassium 4.1 mmol/L (3.5-5.0)
[2020-11-01 18:37] LABS: EGFR Non-African American 49.6 (>60)
[2020-11-01] MEDS ORDERED: Insulin GLARGINE 100 un/ml 10 ml VIAL SUBCUT ONE (20:28)
[2020-11-01] MEDS: Insulin GLARGINE 100 un/ml 10 ml VIAL SUBCUT SCH (20:52)
[2020-11-02] MEDS: Oxacillin 2 GM in NS 0.9% 100 ML BAG IVPB SCH ×2 (03:04→08:53)
[2020-11-02 06:21] LABS: Albumin 2.5 g/dL (3.2-5.2); Albumin/Globulin Ratio 0.5 (1-3); Calcium 8.3 mg/dL (8.6-10.3); EGFR African American 55.3 (>60); EGFR Non-African American 45.7 (>60); Globulin 4.8 g/dL (2-4); Indirect Bilirubin 0.2 mg/dL (0.3-1.0); Potassium 3.8 mmol/L (3.5-5.0); Total Bilirubin 0.3 mg/dL (0.2-1.0); Total Protein 7.3 g/dL (6.4-8.9)
[2020-11-02] MEDS: Nystatin TOP POWDER 15 GM BTL TOPICAL SCH ×3 (10:02→20:55)
[2020-11-02 13:35] LABS: ABS Eosinophils 0.1 10^3/ul (0-0.6); ABS Lymphocytes 1.3 10^3/ul (1.0-4.8); ABS Monocytes 0.4 10^3/ul (0-0.8); ABS Neutrophils 5.7 10^3/ul (1.5-7.7); Eosinophil % 1.6 %; Hematocrit 30 % (35-47); Hemoglobin 10.1 g/dL (12.0-16.0); Lymphocyte % 17.2 %; Mean Corpuscular HGB Conc 34 g/dL (31-36); Mean Corpuscular Hemoglobin 31 pg (27-31); Mean Corpuscular Volume 93 fL (80-97); Mean Platelet Volume 7.7 fL (7.4-10.4); Nucleated Red Blood Cells % 0.1; Platelet Count 312 10^3/uL (150-450); Red Blood Count 3.23 10^6 /uL (3.70-4.87); Red Cell Distribution Width 15 % (10-15); White Blood Count 7.5 10^3/uL (3.5-10.8)
[2020-11-02 13:53] LABS: % Iron Saturation 24 % (15-55); Iron 66 ug/dL (50-212); Total Iron Binding Capacity 279 mcg/dL (250-450); Transferrin 199 mg/dL (203-362); Unsaturated Iron Binding < 264 ug/dL
[2020-11-02 14:13] LABS: Ferritin 73.2 ng/mL (11-307)
[2020-11-02] MEDS: ceFAZolin 2 GM PREMIX 2 GM/50 ML BAG IVPB SCH ×2 (15:52→22:22)
[2020-11-02] MEDS: Insulin GLARGINE 100 un/ml 10 ml VIAL SUBCUT SCH (20:56)
[2020-11-03] MEDS: ceFAZolin 2 GM PREMIX 2 GM/50 ML BAG IVPB SCH ×3 (05:01→21:17)
[2020-11-03 06:06] LABS: ABS Eosinophils 0.1 10^3/ul (0-0.6); ABS Lymphocytes 1.4 10^3/ul (1.0-4.8); ABS Monocytes 0.4 10^3/ul (0-0.8); Eosinophil % 2.4 %; Hematocrit 28 % (35-47); Hemoglobin 9.4 g/dL (12.0-16.0); Lymphocyte % 23.2 %; Mean Corpuscular HGB Conc 34 g/dL (31-36); Mean Corpuscular Hemoglobin 32 pg (27-31); Mean Corpuscular Volume 94 fL (80-97); Mean Platelet Volume 7.6 fL (7.4-10.4); Platelet Count 239 10^3/uL (150-450); Red Blood Count 2.96 10^6 /uL (3.70-4.87); Red Cell Distribution Width 15 % (10-15)
[2020-11-03] MEDS ORDERED: fentaNYL 100 mcg/2 ml 50 MCG/ML VIAL ONE (08:46)
[2020-11-03] MEDS ORDERED: Midazolam 5 mg/5 ml VIAL 1 mg/ml 5 ml VIAL (5 mg) ONE (08:46)
[2020-11-03] MEDS ORDERED: Flumazenil 0.5 mg/5 ml 0.1 MG/ML 5 ml VIAL ONE (08:47)
[2020-11-03] MEDS ORDERED: Naloxone 0.4 mg VIAL 0.4 mg/ml 1 ml VIAL ONE (08:47)
[2020-11-03] MEDS: Nystatin TOP POWDER 15 GM BTL TOPICAL SCH ×3 (12:23→21:19)
[2020-11-03] MEDS: Insulin GLARGINE 100 un/ml 10 ml VIAL SUBCUT SCH (21:19)
[2020-11-04] MEDS: ceFAZolin 2 GM PREMIX 2 GM/50 ML BAG IVPB SCH ×3 (05:12→20:42)
[2020-11-04] MEDS: Nystatin TOP POWDER 15 GM BTL TOPICAL SCH ×3 (09:52→20:43)
[2020-11-04] MEDS ORDERED: fentaNYL 100 mcg/2 ml 50 MCG/ML VIAL ONE (13:10)
[2020-11-04] MEDS ORDERED: Midazolam 10 mg/10 ml VIAL 1 mg/ml 10 ml VIAL (10 mg) ONE (13:10)
[2020-11-04] MEDS ORDERED: diPHENhydraMINE IV 50 MG/ML 1 ml VIAL (BENADRYL) ONE (14:10)
[2020-11-04] MEDS: Pantoprazole VIAL 40 MG VIAL IV SCH (20:41)
[2020-11-04] MEDS: Insulin GLARGINE 100 un/ml 10 ml VIAL SUBCUT SCH (20:42)
[2020-11-05] MEDS: ceFAZolin 2 GM PREMIX 2 GM/50 ML BAG IVPB SCH ×3 (04:53→20:34)
[2020-11-05 07:08] LABS: ABS Eosinophils 0.1 10^3/ul (0-0.6); ABS Lymphocytes 1.4 10^3/ul (1.0-4.8); ABS Monocytes 0.4 10^3/ul (0-0.8); ABS Neutrophils 4.5 10^3/ul (1.5-7.7); Eosinophil % 2.2 %; Hematocrit 29 % (35-47); Hemoglobin 9.9 g/dL (12.0-16.0); Lymphocyte % 20.9 %; Mean Corpuscular HGB Conc 34 g/dL (31-36); Mean Corpuscular Hemoglobin 31 pg (27-31); Mean Corpuscular Volume 92 fL (80-97); Mean Platelet Volume 8.1 fL (7.4-10.4); Platelet Count 280 10^3/uL (150-450); Red Blood Count 3.14 10^6 /uL (3.70-4.87); Red Cell Distribution Width 15 % (10-15); White Blood Count 6.5 10^3/uL (3.5-10.8)
[2020-11-05] MEDS: Pantoprazole VIAL 40 MG VIAL IV SCH ×2 (08:24→20:34)
[2020-11-05] MEDS: Nystatin TOP POWDER 15 GM BTL TOPICAL SCH ×3 (08:25→20:35)
[2020-11-05] MEDS ORDERED: Buffered Lidocaine 1% SYRIN 1 ml INTRADERM ONE (09:52)
[2020-11-05] MEDS: Insulin GLARGINE 100 un/ml 10 ml VIAL SUBCUT SCH (20:34)
[2020-11-06] MEDS: ceFAZolin 2 GM PREMIX 2 GM/50 ML BAG IVPB SCH (05:24)
[2020-11-06] MEDS: Pantoprazole VIAL 40 MG VIAL IV SCH (08:32)
[2020-11-06] MEDS: Nystatin TOP POWDER 15 GM BTL TOPICAL SCH (08:35)
[2020-11-06 09:11] VITALS: BP 163/85
== END 2020-11-06 11:30 | disposition home or self-care (01) | DRG 247 ==
LOC: ED 12:53 → MEDTELE 21:58 → ICU 10-30 13:50 → MEDTELE 11-01 16:40
PROVIDERS: ADMIT Internal Medicine; ATTEND Internal Medicine

== ENCOUNTER 2020-11-12 14:17 | Observation (INO) ==
[2020-11-12 15:14] LABS: ABS Eosinophils 0.1 10^3/ul (0-0.6); ABS Lymphocytes 0.8 10^3/ul (1.0-4.8); ABS Monocytes 0.3 10^3/ul (0-0.8); ABS Neutrophils 4.5 10^3/ul (1.5-7.7); Hematocrit 29 % (35-47); Hemoglobin 9.8 g/dL (12.0-16.0); Lymphocyte % 14.1 %; Mean Corpuscular HGB Conc 33 g/dL (31-36); Mean Corpuscular Hemoglobin 31 pg (27-31); Mean Corpuscular Volume 93 fL (80-97); Mean Platelet Volume 8.2 fL (7.4-10.4); Platelet Count 284 10^3/uL (150-450); Red Blood Count 3.15 10^6 /uL (3.70-4.87); Red Cell Distribution Width 16 % (10-15); White Blood Count 5.6 10^3/uL (3.5-10.8)
[2020-11-12 15:35] LABS: Troponin I 0.02 ng/mL (<0.03)
[2020-11-12 15:45] LABS: Albumin 2.6 g/dL (3.2-5.2); Albumin/Globulin Ratio 0.4 (1-3); Calcium 8.8 mg/dL (8.6-10.3); EGFR Non-African American 30.5 (>60); Globulin 6.8 g/dL (2-4); Potassium 4.6 mmol/L (3.5-5.0); Total Bilirubin 0.6 mg/dL (0.2-1.0); Total Protein 9.4 g/dL (6.4-8.9)
[2020-11-12] MEDS: PAIN RELIEVING RUB (MENTHOL/SALICYLATE) 1 APPLIC TUBE TOPICAL PRN (18:46)
[2020-11-12 20:28] LABS: C Reactive Protein 106.1 mg/L (<8.01)
[2020-11-12] MEDS ORDERED: CEFAZOLIN IV SCH ×2 (23:15→23:45)
[2020-11-13] MEDS: NS 0.9% 1000 ml BAG 1,000 ML IV SCH ×2 (00:42→11:51)
[2020-11-13 02:22] LABS: ABS Eosinophils 0.1 10^3/ul (0-0.6); ABS Lymphocytes 0.9 10^3/ul (1.0-4.8); ABS Monocytes 0.2 10^3/ul (0-0.8); ABS Neutrophils 3.8 10^3/ul (1.5-7.7); Eosinophil % 1.3 %; Hematocrit 29 % (35-47); Hemoglobin 9.8 g/dL (12.0-16.0); Lymphocyte % 18.5 %; Mean Corpuscular HGB Conc 34 g/dL (31-36); Mean Corpuscular Hemoglobin 31 pg (27-31); Mean Corpuscular Volume 92 fL (80-97); Mean Platelet Volume 8.7 fL (7.4-10.4); Platelet Count 310 10^3/uL (150-450); Red Blood Count 3.15 10^6 /uL (3.70-4.87); Red Cell Distribution Width 16 % (10-15)
[2020-11-13 02:29] LABS: INR 1.43 (0.82-1.09)
[2020-11-13 02:39] LABS: ALT 43 U/L (7-52); Albumin 2.7 g/dL (3.2-5.2); Albumin/Globulin Ratio 0.4 (1-3); Alkaline Phosphatase 285 U/L (35-149); Blood Urea Nitrogen 39 mg/dL (6-24); CO2 Carbon Dioxide 21 mmol/L (22-32); Calcium 8.6 mg/dL (8.6-10.3); Chloride 103 mmol/L (101-111); Cholesterol 106 mg/dL; EGFR African American 33.4 (>60); EGFR Non-African American 27.6 (>60); Glucose 73 mg/dL (70-100); HDL Cholesterol 14.7 mg/dL; LDL Cholesterol 62 mg/dL; Sodium 128 mmol/L (135-145); Total Protein 9.7 g/dL (6.4-8.9); Triglycerides 149 mg/dL
[2020-11-13 02:44] LABS: Anion Gap 4 mmol/L (2-11)
[2020-11-13] MEDS: Insulin GLARGINE 100 un/ml 10 ml VIAL SUBCUT SCH (08:24)
[2020-11-13] MEDS: Aspirin EC 81 mg TAB.EC (enteric coated) PO SCH (08:24)
[2020-11-13] MEDS: Multivitamins/Minerals TAB PO SCH (08:24)
[2020-11-13 10:41] LABS: Urine Appearance Turbid; Urine Bilirubin Negative (Negative); Urine Blood 2+ (Negative); Urine Color Amber; Urine Glucose Negative (Negative); Urine Ketones Negative (Negative); Urine Nitrite Negative (Negative); Urine Protein 2+(100 mg/dL) (Negative); Urine Specific Gravity 1.016 (1.002-1.030); Urine Urobilinogen Negative (Negative)
[2020-11-13 10:44] LABS: Urine Bacteria Absent (Absent); Urine Red Blood Cell 3+(>10/hpf) (Absent); Urine Squamous Epithelial Cell Present (Absent); Urine White Blood Cell 3+(>20/hpf) (Absent)
[2020-11-13 11:09] LABS: ABS Eosinophils 0.1 10^3/ul (0-0.6); ABS Lymphocytes 0.6 10^3/ul (1.0-4.8); ABS Monocytes 0.2 10^3/ul (0-0.8); ABS Neutrophils 2.7 10^3/ul (1.5-7.7); Eosinophil % 1.9 %; Hematocrit 26 % (35-47); Hemoglobin 8.8 g/dL (12.0-16.0); Lymphocyte % 17.7 %; Mean Corpuscular HGB Conc 34 g/dL (31-36); Mean Corpuscular Hemoglobin 31 pg (27-31); Mean Corpuscular Volume 93 fL (80-97); Mean Platelet Volume 8.2 fL (7.4-10.4); Platelet Count 222 10^3/uL (150-450); Red Blood Count 2.81 10^6 /uL (3.70-4.87); Red Cell Distribution Width 16 % (10-15); White Blood Count 3.6 10^3/uL (3.5-10.8)
[2020-11-13 11:28] LABS: Albumin 2.4 g/dL (3.2-5.2); Albumin/Globulin Ratio 0.4 (1-3); Calcium 8.5 mg/dL (8.6-10.3); EGFR African American 36.7 (>60); EGFR Non-African American 30.3 (>60); Globulin 6.1 g/dL (2-4); Magnesium 1.4 mg/dL (1.9-2.7); Potassium 4.2 mmol/L (3.5-5.0); Potassium Redraw 4.2 mmol/L (3.5-5.0); Total Bilirubin 0.5 mg/dL (0.2-1.0); Total Protein 8.5 g/dL (6.4-8.9)
[2020-11-13] MEDS ORDERED: Magnesium Sulfate IV 3 GM in NS 0.9% 100 ml BAG 100 ML IVPB ONE (13:42)
[2020-11-13] MEDS: PAIN RELIEVING RUB (MENTHOL/SALICYLATE) 1 APPLIC TUBE TOPICAL PRN (20:45)
[2020-11-13] MEDS: Nystatin TOP POWDER 15 GM BTL TOPICAL SCH (20:45)
[2020-11-14 08:07] LABS: ABS Eosinophils 0.1 10^3/ul (0-0.6); ABS Monocytes 0.3 10^3/ul (0-0.8); ABS Neutrophils 2.2 10^3/ul (1.5-7.7); Hematocrit 26 % (35-47); Hemoglobin 8.7 g/dL (12.0-16.0); Lymphocyte % 27.9 %; Mean Corpuscular HGB Conc 34 g/dL (31-36); Mean Corpuscular Hemoglobin 31 pg (27-31); Mean Corpuscular Volume 93 fL (80-97); Mean Platelet Volume 8.4 fL (7.4-10.4); Nucleated Red Blood Cells % 0.2; Platelet Count 223 10^3/uL (150-450); Red Blood Count 2.78 10^6 /uL (3.70-4.87); Red Cell Distribution Width 16 % (10-15); White Blood Count 3.7 10^3/uL (3.5-10.8)
[2020-11-14] MEDS: ceFAZolin 2 GM PREMIX 2 GM/50 ML BAG IVPB SCH ×2 (08:19→19:58)
[2020-11-14] MEDS: Aspirin EC 81 mg TAB.EC (enteric coated) PO SCH (08:35)
[2020-11-14] MEDS: Multivitamins/Minerals TAB PO SCH (08:36)
[2020-11-14] MEDS: Insulin GLARGINE 100 un/ml 10 ml VIAL SUBCUT SCH (08:37)
[2020-11-14] MEDS: Nystatin TOP POWDER 15 GM BTL TOPICAL SCH ×3 (08:38→20:01)
[2020-11-14 09:18] LABS: Albumin 2.3 g/dL (3.2-5.2); Albumin/Globulin Ratio 0.4 (1-3); Calcium 8.6 mg/dL (8.6-10.3); EGFR African American 38.6 (>60); EGFR Non-African American 31.9 (>60); Globulin 6.2 g/dL (2-4); Potassium 4.1 mmol/L (3.5-5.0); Total Bilirubin 0.5 mg/dL (0.2-1.0); Total Protein 8.5 g/dL (6.4-8.9)
[2020-11-14 14:13] LABS: Hepatitis B Surface Antigen Nonreactive (Nonreactive)
[2020-11-14 14:18] LABS: Hepatitis A Ab IgM Negative (Negative)
[2020-11-14 14:19] LABS: Hepatitis B Core IgM Nonreactive (Nonreactive)
[2020-11-14 14:31] LABS: Hepatitis C Antibody Negative (Negative)
[2020-11-14] MEDS ORDERED: NS 0.9% 1000 ml BAG 1,000 ML IV SCH (17:45)
[2020-11-14] MEDS ORDERED: Dextrose 50% Syringe 50 ml 25 GM/50 ML SYRINGE IV PUSH PRN (17:53)
[2020-11-14] MEDS: PAIN RELIEVING RUB (MENTHOL/SALICYLATE) 1 APPLIC TUBE TOPICAL PRN (20:01)
[2020-11-15] MEDS: ceFAZolin 2 GM PREMIX 2 GM/50 ML BAG IVPB SCH (09:31)
[2020-11-15] MEDS: Multivitamins/Minerals TAB PO SCH (09:33)
[2020-11-15] MEDS: Aspirin EC 81 mg TAB.EC (enteric coated) PO SCH (09:34)
[2020-11-15] MEDS: Insulin GLARGINE 100 un/ml 10 ml VIAL SUBCUT SCH (09:35)
[2020-11-15] MEDS: Nystatin TOP POWDER 15 GM BTL TOPICAL SCH (09:36)
[2020-11-15 10:48] LABS: Albumin 2.3 g/dL (3.2-5.2); Albumin/Globulin Ratio 0.3 (1-3); Calcium 8.5 mg/dL (8.6-10.3); EGFR African American 43.2 (>60); EGFR Non-African American 35.7 (>60); Globulin 6.6 g/dL (2-4); Total Bilirubin 0.5 mg/dL (0.2-1.0); Total Protein 8.9 g/dL (6.4-8.9)
[2020-11-15 11:12] LABS: ABS Lymphocytes 0.9 10^3/ul (1.0-4.8); ABS Monocytes 0.2 10^3/ul (0-0.8); ABS Neutrophils 1.7 10^3/ul (1.5-7.7); Eosinophil % 1.5 %; Hematocrit 27 % (35-47); Lymphocyte % 30.1 %; Mean Corpuscular HGB Conc 34 g/dL (31-36); Mean Corpuscular Hemoglobin 31 pg (27-31); Mean Corpuscular Volume 93 fL (80-97); Mean Platelet Volume 8.3 fL (7.4-10.4); Nucleated Red Blood Cells % 0.1; Platelet Count 221 10^3/uL (150-450); Red Blood Count 2.88 10^6 /uL (3.70-4.87); Red Cell Distribution Width 16 % (10-15); White Blood Count 2.9 10^3/uL (3.5-10.8)
[2020-11-15 12:06] LABS: Potassium 4.1 mmol/L (3.5-5.0)
[2020-11-15 12:14] VITALS: BP 162/66
[2020-11-15] MEDS ORDERED: ceFAZolin 2 GM PREMIX 2 GM/50 ML BAG IVPB ONE (14:00)
== END 2020-11-15 15:05 | disposition home or self-care (01) ==
LOC: MEDTELE 14:17 → ED 14:17 → MEDTELE 22:54
PROVIDERS: ADMIT Internal Medicine; ATTEND Hospitalist

== ENCOUNTER 2021-01-15 12:34 | Observation (INO) ==
[2021-01-15] MEDS ORDERED: NS 0.9% 1000 ml BAG 2,000 ML IV ONE (13:02)
[2021-01-15] MEDS ORDERED: Pantoprazole VIAL 40 MG VIAL IV ONE (13:03)
[2021-01-15] MEDS ORDERED: NS 0.9% 1000 ml BAG 1,000 ML IV ONE (13:03)
[2021-01-15 13:09] LABS: ABS Eosinophils 0.1 10^3/ul (0-0.6); ABS Lymphocytes 1.6 10^3/ul (1.0-4.8); ABS Monocytes 0.4 10^3/ul (0-0.8); ABS Neutrophils 4.5 10^3/ul (1.5-7.7); Eosinophil % 0.8 %; Hematocrit 31 % (35-47); Hemoglobin 10.1 g/dL (12.0-16.0); Lymphocyte % 24.9 %; Mean Corpuscular HGB Conc 33 g/dL (31-36); Mean Corpuscular Hemoglobin 31 pg (27-31); Mean Corpuscular Volume 94 fL (80-97); Mean Platelet Volume 7.9 fL (7.4-10.4); Platelet Count 290 10^3/uL (150-450); Red Blood Count 3.25 10^6 /uL (3.70-4.87); Red Cell Distribution Width 14 % (10-15); White Blood Count 6.6 10^3/uL (3.5-10.8)
[2021-01-15 13:14] LABS: INR 1.21 (0.86-1.15)
[2021-01-15 13:27] LABS: Albumin 2.8 g/dL (3.2-5.2); Albumin/Globulin Ratio 0.5 (1-3); C Reactive Protein 29.58 mg/L (<8.01); Calcium 8.6 mg/dL (8.6-10.3); EGFR African American 52.2 (>60); EGFR Non-African American 43.2 (>60); Potassium 4.1 mmol/L (3.5-5.0); Total Bilirubin 0.3 mg/dL (0.2-1.0); Total Protein 8.8 g/dL (6.4-8.9)
[2021-01-15] MEDS ORDERED: Piperacillin/Tazobac ADVAN 3.375 GM in NS 0.9% 100 ml BAG 100 ML IVPB ONE (14:33)
[2021-01-15 14:59] LABS: Urine Appearance Cloudy; Urine Bilirubin Negative (Negative); Urine Blood Negative (Negative); Urine Color Yellow; Urine Glucose 3+(>=500 mg/dL) (Negative); Urine Ketones Negative (Negative); Urine Nitrite Negative (Negative); Urine Protein 1+(30 mg/dL) (Negative); Urine Specific Gravity 1.014 (1.002-1.030); Urine Urobilinogen Negative (Negative)
[2021-01-15 15:02] LABS: Urine Bacteria Absent (Absent); Urine Red Blood Cell Absent (Absent); Urine Squamous Epithelial Cell Present (Absent); Urine White Blood Cell Absent (Absent)
[2021-01-15] MEDS ORDERED: HYDROmorphone 1 MG/1 ML SYRINGE IV ONE (16:24)
[2021-01-15] MEDS ORDERED: Ondansetron 4 mg VIAL 2 MG/ML 2 ml VIAL IV ONE (16:24)
[2021-01-15] MEDS ORDERED: Polyethylene Glycol 3350 17 GM PACKET PO PRN (17:57)
[2021-01-15] MEDS ORDERED: Piperacillin/Tazobac ADVAN 3.375 GM in NS 0.9% 100 ml BAG 100 ML IV ONE ×2 (17:59→19:30)
[2021-01-15] MEDS ORDERED: Zosyn per Pharmacy NOTE FOLLOW UP SCH (18:00)
[2021-01-15] MEDS ORDERED: Morphine 2 MG/ML SYRINGE IV PRN (18:09)
[2021-01-15] MEDS ORDERED: NS 0.9% 1000 ml BAG 1,000 ML IV SCH (18:15)
[2021-01-15] MEDS ORDERED: Dextrose 50% Syringe 50 ml 25 GM/50 ML SYRINGE IV PUSH PRN (18:35)
[2021-01-15] MEDS: Heparin 5000 UNITS/ML 1 mL VIAL SUBCUT SCH (20:47)
[2021-01-15] MEDS ORDERED: Insulin GLARGINE 100 un/ml 10 ml VIAL SUBCUT SCH (21:00)
[2021-01-16] MEDS ORDERED: Ondansetron 4 mg VIAL 2 MG/ML 2 ml VIAL IV PRN (04:10)
[2021-01-16] MEDS: Heparin 5000 UNITS/ML 1 mL VIAL SUBCUT SCH ×2 (05:17→13:05)
[2021-01-16] MEDS: ZOSYN 3.375 GM Q8H per EXTENDED INFUSION IV SCH ×2 (05:17→13:04)
[2021-01-16 08:29] LABS: ABS Eosinophils 0.1 10^3/ul (0-0.6); ABS Lymphocytes 2.6 10^3/ul (1.0-4.8); ABS Monocytes 0.4 10^3/ul (0-0.8); ABS Neutrophils 4.2 10^3/ul (1.5-7.7); Eosinophil % 1.1 %; Hematocrit 28 % (35-47); Hemoglobin 9.6 g/dL (12.0-16.0); Lymphocyte % 35.9 %; Mean Corpuscular HGB Conc 35 g/dL (31-36); Mean Corpuscular Hemoglobin 32 pg (27-31); Mean Corpuscular Volume 93 fL (80-97); Mean Platelet Volume 7.7 fL (7.4-10.4); Platelet Count 250 10^3/uL (150-450); Red Blood Count 2.99 10^6 /uL (3.70-4.87); Red Cell Distribution Width 15 % (10-15); White Blood Count 7.3 10^3/uL (3.5-10.8)
[2021-01-16 08:49] LABS: C Reactive Protein 54.2 mg/L (<8.01); Calcium 7.8 mg/dL (8.6-10.3); EGFR African American 42.7 (>60); EGFR Non-African American 35.3 (>60); Potassium 3.6 mmol/L (3.5-5.0)
[2021-01-16] MEDS ORDERED: Aspirin EC 81 mg TAB.EC (enteric coated) PO SCH (09:00)
[2021-01-16 14:41] VITALS: BP 140/47
== END 2021-01-16 17:00 | disposition home or self-care (01) ==
LOC: MED 12:34 → ED 12:34
PROVIDERS: ADMIT Internal Medicine; ATTEND Internal Medicine

== ENCOUNTER 2021-02-27 18:21 | Inpatient (IN) ==
[2021-02-27] MEDS ORDERED: Piperacillin/Tazobac ADVAN 3.375 GM in NS 0.9% 100 ml BAG 100 ML IVPB ONE (19:08)
[2021-02-27 21:00] LABS: ABS Lymphocytes 0.4 10^3/ul (1.0-4.8); ABS Monocytes 0.1 10^3/ul (0-0.8); ABS Neutrophils 4.1 10^3/ul (1.5-7.7); Eosinophil % 0.6 %; Hematocrit 26 % (35-47); Hemoglobin 8.9 g/dL (12.0-16.0); Lymphocyte % 9.5 %; Mean Corpuscular HGB Conc 34 g/dL (31-36); Mean Corpuscular Hemoglobin 31 pg (27-31); Mean Corpuscular Volume 92 fL (80-97); Mean Platelet Volume 8.8 fL (7.4-10.4); Platelet Count 283 10^3/uL (150-450); Red Blood Count 2.85 10^6 /uL (3.70-4.87); Red Cell Distribution Width 15 % (10-15); White Blood Count 4.7 10^3/uL (3.5-10.8)
[2021-02-27 21:31] LABS: ALT 210 U/L (7-52); Albumin 2.6 g/dL (3.2-5.2); Albumin/Globulin Ratio 0.5 (1-3); Alkaline Phosphatase 96 U/L (35-149); Anion Gap 7 mmol/L (2-11); Blood Urea Nitrogen 11 mg/dL (6-24); C Reactive Protein 64.32 mg/L (<8.01); CO2 Carbon Dioxide 22 mmol/L (22-32); Calcium 7.8 mg/dL (8.6-10.3); Chloride 104 mmol/L (101-111); EGFR African American 66.9 (>60); EGFR Non-African American 55.3 (>60); Glucose 99 mg/dL (70-100); Lipase 111 U/L (11.0-82.0); Potassium 3.5 mmol/L (3.5-5.0); Sodium 133 mmol/L (135-145); Total Protein 7.6 g/dL (6.4-8.9)
[2021-02-27 21:33] LABS: Troponin I 0.71 ng/mL (<0.03)
[2021-02-27 21:47] LABS: AST 1179 U/L (13-39)
[2021-02-28] MEDS ORDERED: NS 0.9% 1000 ml BAG 1,000 ML IV SCH (00:30)
[2021-02-28] MEDS ORDERED: Dextrose 50% Syringe 50 ml 25 GM/50 ML SYRINGE IV PUSH PRN (00:31)
[2021-02-28 01:42] LABS: Hepatitis B Surface Antigen Nonreactive (Nonreactive)
[2021-02-28 01:47] LABS: Hepatitis A Ab IgM Negative (Negative)
[2021-02-28 01:48] LABS: Hepatitis B Core IgM Nonreactive (Nonreactive)
[2021-02-28 01:49] LABS: Rapid COVID-19 Molecular Undetected (Undetected)
[2021-02-28 01:59] LABS: Hepatitis C Antibody Negative (Negative)
[2021-02-28] MEDS ORDERED: Iodixanol (CONTRAST) 320 MG/ML 100 ML SDV IV ONE (02:13)
[2021-02-28 06:31] LABS: ABS Eosinophils 0.1 10^3/ul (0-0.6); ABS Lymphocytes 0.6 10^3/ul (1.0-4.8); ABS Monocytes 0.2 10^3/ul (0-0.8); ABS Neutrophils 2.5 10^3/ul (1.5-7.7); Eosinophil % 2.8 %; Hematocrit 27 % (35-47); Hemoglobin 8.7 g/dL (12.0-16.0); Lymphocyte % 16.8 %; Mean Corpuscular HGB Conc 33 g/dL (31-36); Mean Corpuscular Hemoglobin 31 pg (27-31); Mean Corpuscular Volume 93 fL (80-97); Mean Platelet Volume 8.4 fL (7.4-10.4); Platelet Count 242 10^3/uL (150-450); Red Blood Count 2.84 10^6 /uL (3.70-4.87); Red Cell Distribution Width 15 % (10-15); White Blood Count 3.3 10^3/uL (3.5-10.8)
[2021-02-28 06:36] LABS: INR 1.61 (0.86-1.15)
[2021-02-28 06:56] LABS: Albumin 2.4 g/dL (3.2-5.2); Albumin/Globulin Ratio 0.5 (1-3); Calcium 7.8 mg/dL (8.6-10.3); EGFR African American 60.5 (>60); Potassium 3.3 mmol/L (3.5-5.0); Total Bilirubin 0.8 mg/dL (0.2-1.0); Total Protein 7.4 g/dL (6.4-8.9)
[2021-02-28 06:57] LABS: Troponin I 0.41 ng/mL (<0.03)
[2021-02-28] MEDS ORDERED: Potassium Chlor 20 meq TAB.ER PO ONE (07:15)
[2021-02-28 07:25] LABS: Magnesium 1.3 mg/dL (1.9-2.7)
[2021-02-28] MEDS ORDERED: Piperacillin/Tazobac ADVAN 3.375 GM in NS 0.9% 100 ml BAG 100 ML IVPB ONE (07:47)
[2021-02-28] MEDS ORDERED: Zosyn per Pharmacy NOTE FOLLOW UP SCH (08:00)
[2021-02-28] MEDS ORDERED: Magnesium Sulf 4 GM/100 ML IV 4,000 MG/100 ML BAG IVPB ONE (09:04)
[2021-02-28] MEDS: ZOSYN 3.375 GM Q8H per EXTENDED INFUSION IV SCH ×2 (13:04→22:35)
[2021-02-28] MEDS ORDERED: Lactated Ringers 1000 ml BAG 1,000 ML IV ONE ×2 (15:41→15:43)
[2021-02-28] MEDS: Aspirin EC 81 mg TAB.EC (enteric coated) PO SCH (17:10)
[2021-02-28] MEDS ORDERED: Insulin GLARGINE 100 un/ml 10 ml VIAL SUBCUT SCH (18:00)
[2021-02-28 18:59] LABS: Calcium 7.8 mg/dL (8.6-10.3); EGFR African American 51.6 (>60); EGFR Non-African American 42.6 (>60); Magnesium 2.5 mg/dL (1.9-2.7); Potassium 4.5 mmol/L (3.5-5.0)
[2021-02-28] MEDS: Potassium Chlor 20 meq TAB.ER PO SCH (20:30)
[2021-02-28] MEDS: Nystatin TOP POWDER 15 GM BTL TOPICAL SCH (20:31)
[2021-02-28 21:29] LABS: Urine Appearance Clear; Urine Bilirubin Negative (Negative); Urine Blood 1+ (Negative); Urine Color Yellow; Urine Glucose 2+(150 mg/dL) (Negative); Urine Ketones Negative (Negative); Urine Nitrite Negative (Negative); Urine Protein Negative (Negative); Urine Specific Gravity 1.017 (1.002-1.030); Urine Urobilinogen Negative (Negative)
[2021-02-28 21:48] LABS: Urine Bacteria Absent (Absent); Urine Red Blood Cell Trace(0-2/hpf) (Absent); Urine Squamous Epithelial Cell Present (Absent); Urine White Blood Cell Trace(0-5/hpf) (Absent)
[2021-03-01] MEDS: ZOSYN 3.375 GM Q8H per EXTENDED INFUSION IV SCH ×3 (04:40→14:58)
[2021-03-01 05:41] LABS: INR 1.45 (0.86-1.15)
[2021-03-01 05:51] LABS: Albumin 2.2 g/dL (3.2-5.2); Albumin/Globulin Ratio 0.4 (1-3); Calcium 7.8 mg/dL (8.6-10.3); EGFR African American 56.3 (>60); EGFR Non-African American 46.5 (>60); Globulin 4.9 g/dL (2-4); Magnesium 2.1 mg/dL (1.9-2.7); Potassium 3.9 mmol/L (3.5-5.0); Total Bilirubin 0.6 mg/dL (0.2-1.0); Total Protein 7.1 g/dL (6.4-8.9)
[2021-03-01 06:12] LABS: Ferritin 41.1 ng/mL (11-307)
[2021-03-01] MEDS: Potassium Chlor 20 meq TAB.ER PO SCH (08:12)
[2021-03-01] MEDS: Nystatin TOP POWDER 15 GM BTL TOPICAL SCH ×2 (08:15→22:02)
[2021-03-01] MEDS: Insulin GLARGINE 100 un/ml 10 ml VIAL SUBCUT SCH (17:20)
[2021-03-01] MEDS: Aspirin EC 81 mg TAB.EC (enteric coated) PO SCH (17:21)
[2021-03-01 17:54] LABS: INR 1.29 (0.86-1.15)
[2021-03-02 05:25] LABS: ABS Eosinophils 0.1 10^3/ul (0-0.6); ABS Lymphocytes 1.4 10^3/ul (1.0-4.8); ABS Monocytes 0.3 10^3/ul (0-0.8); ABS Neutrophils 1.7 10^3/ul (1.5-7.7); Eosinophil % 2.4 %; Hematocrit 27 % (35-47); Hemoglobin 8.9 g/dL (12.0-16.0); Lymphocyte % 39.6 %; Mean Corpuscular HGB Conc 33 g/dL (31-36); Mean Corpuscular Hemoglobin 31 pg (27-31); Mean Corpuscular Volume 94 fL (80-97); Mean Platelet Volume 8.2 fL (7.4-10.4); Nucleated Red Blood Cells % 0.1; Platelet Count 254 10^3/uL (150-450); Red Blood Count 2.86 10^6 /uL (3.70-4.87); Red Cell Distribution Width 15 % (10-15); White Blood Count 3.4 10^3/uL (3.5-10.8)
[2021-03-02 05:41] LABS: Albumin 2.3 g/dL (3.2-5.2); Albumin/Globulin Ratio 0.4 (1-3); Calcium 8.4 mg/dL (8.6-10.3); EGFR African American 56.3 (>60); EGFR Non-African American 46.5 (>60); Globulin 5.3 g/dL (2-4); Potassium 4.4 mmol/L (3.5-5.0); Total Bilirubin 0.4 mg/dL (0.2-1.0); Total Protein 7.6 g/dL (6.4-8.9)
[2021-03-02] MEDS: Nystatin TOP POWDER 15 GM BTL TOPICAL SCH ×2 (08:39→21:45)
[2021-03-02] MEDS: Aspirin EC 81 mg TAB.EC (enteric coated) PO SCH (17:18)
[2021-03-02] MEDS: Insulin GLARGINE 100 un/ml 10 ml VIAL SUBCUT SCH (17:19)
[2021-03-03 06:10] LABS: ABS Eosinophils 0.1 10^3/ul (0-0.6); ABS Monocytes 0.3 10^3/ul (0-0.8); ABS Neutrophils 1.7 10^3/ul (1.5-7.7); Eosinophil % 1.9 %; Hematocrit 27 % (35-47); Hemoglobin 9.2 g/dL (12.0-16.0); Lymphocyte % 47.8 %; Mean Corpuscular HGB Conc 34 g/dL (31-36); Mean Corpuscular Hemoglobin 32 pg (27-31); Mean Corpuscular Volume 93 fL (80-97); Mean Platelet Volume 8.3 fL (7.4-10.4); Platelet Count 302 10^3/uL (150-450); Red Blood Count 2.91 10^6 /uL (3.70-4.87); Red Cell Distribution Width 15 % (10-15); White Blood Count 4.1 10^3/uL (3.5-10.8)
[2021-03-03 06:29] LABS: Albumin 2.5 g/dL (3.2-5.2); Albumin/Globulin Ratio 0.5 (1-3); C Reactive Protein 14.7 mg/L (<8.01); Calcium 8.7 mg/dL (8.6-10.3); EGFR African American 66.9 (>60); EGFR Non-African American 55.3 (>60); Globulin 5.4 g/dL (2-4); Total Bilirubin 0.4 mg/dL (0.2-1.0); Total Protein 7.9 g/dL (6.4-8.9)
[2021-03-03 07:16] LABS: Erythrocyte Sed Rate > 120 mm/Hr (0-29)
[2021-03-03] MEDS: Nystatin TOP POWDER 15 GM BTL TOPICAL SCH ×2 (08:37→21:48)
[2021-03-03 12:00] LABS: AFP Tumor Marker 8.2 ng/mL
[2021-03-03 13:05] LABS: Immunoglobulin D <1 mg/dL (<=10)
[2021-03-03 14:41] LABS: Immunoglobulin A 425 mg/dL (61 - 356); Immunoglobulin G 4310 mg/dL (767 - 1590); Immunoglobulin M 168 mg/dL (37 - 286)
[2021-03-03 15:21] LABS: Immunoglobulin E 17.7 kU/L (<= 214)
[2021-03-03 17:15] LABS: UR Microalbumin (mg/L) 56.1 mg/L; Urine Creatinine 69.16 mg/dL; Urine Microalbumin/Creatinine 81.1 (<31)
[2021-03-03] MEDS: Insulin GLARGINE 100 un/ml 10 ml VIAL SUBCUT SCH (17:22)
[2021-03-03] MEDS: Aspirin EC 81 mg TAB.EC (enteric coated) PO SCH (17:23)
[2021-03-03 17:39] LABS: Mitochondria M2 Antibody 0.2 U
[2021-03-04 03:37] LABS: Anaplasma phagocytophilum Negative (Negative); B. miyamotoi PCR, B Negative (Negative); Babesia divergens/MO-1 Negative (Negative); Babesia ducani Negative (Negative); Ehrlichia chaffeensis Negative (Negative); Ehrlichia ewingii/canis Negative (Negative); Ehrlichia muris eauclairensis Negative (Negative)
[2021-03-04 06:24] LABS: Hematocrit 28 % (35-47); Hemoglobin 9.4 g/dL (12.0-16.0); Mean Corpuscular HGB Conc 34 g/dL (31-36); Mean Corpuscular Hemoglobin 32 pg (27-31); Mean Corpuscular Volume 94 fL (80-97); Mean Platelet Volume 8.6 fL (7.4-10.4); Platelet Count 317 10^3/uL (150-450); Red Blood Count 2.95 10^6 /uL (3.70-4.87); Red Cell Distribution Width 16 % (10-15); White Blood Count 4.7 10^3/uL (3.5-10.8)
[2021-03-04 06:45] LABS: Albumin 2.6 g/dL (3.2-5.2); Albumin/Globulin Ratio 0.5 (1-3); Calcium 8.8 mg/dL (8.6-10.3); EGFR African American 68.5 (>60); EGFR Non-African American 56.6 (>60); Globulin 5.7 g/dL (2-4); Magnesium 1.3 mg/dL (1.9-2.7); Potassium 3.7 mmol/L (3.5-5.0); Total Bilirubin 0.4 mg/dL (0.2-1.0); Total Protein 8.3 g/dL (6.4-8.9)
[2021-03-04] MEDS ORDERED: Magnesium Sulfate IV 3 GM in NS 0.9% 100 ml BAG 100 ML IVPB ONE (08:00)
[2021-03-04] MEDS: Nystatin TOP POWDER 15 GM BTL TOPICAL SCH (09:19)
[2021-03-04 13:50] VITALS: BP 125/46
[2021-03-05 16:45] LABS: Alpha 1 Antitrypsin A1A 189 mg/dL (100 - 190)
== END 2021-03-04 15:45 | disposition home or self-care (01) | DRG 872 ==
LOC: ED 18:21 → SUATTDRO 02-28 00:23 → MED 02-28 00:23
PROVIDERS: ADMIT Hospitalist; ATTEND Internal Medicine

== ENCOUNTER 2021-05-05 04:59 | Inpatient (IN) ==
[2021-05-05] MEDS ORDERED: Lactated Ringers 1000 ml BAG 1,000 ML IV ONE ×3 (05:03→11:17)
[2021-05-05] MEDS ORDERED: Cefepime 1 GM in Dextrose 1 GM/50 ML BAG IV ONE (05:17)
[2021-05-05 05:54] LABS: ABS Lymphocytes 0.4 10^3/ul (1.0-4.8); ABS Neutrophils 5.5 10^3/ul (1.5-7.7); Eosinophil % 0.1 %; Hematocrit 31 % (35-47); Hemoglobin 10.7 g/dL (12.0-16.0); Lymphocyte % 6.1 %; Mean Corpuscular HGB Conc 35 g/dL (31-36); Mean Corpuscular Hemoglobin 32 pg (27-31); Mean Corpuscular Volume 92 fL (80-97); Mean Platelet Volume 7.8 fL (7.4-10.4); Platelet Count 396 10^3/uL (150-450); Red Blood Count 3.36 10^6 /uL (3.70-4.87); Red Cell Distribution Width 14 % (10-15); White Blood Count 5.9 10^3/uL (3.5-10.8)
[2021-05-05 06:06] LABS: Activated Partial Thrombo Time 25.1 seconds (26.0-38.0); INR 1.2 (0.86-1.15)
[2021-05-05 06:18] LABS: ALT 27 U/L (7-52); AST 57 U/L (13-39); Albumin 3.1 g/dL (3.2-5.2); Albumin/Globulin Ratio 0.5 (1-3); Alkaline Phosphatase 105 U/L (35-149); Anion Gap 9 mmol/L (2-11); Blood Urea Nitrogen 27 mg/dL (6-24); C Reactive Protein 14.98 mg/L (<8.01); CO2 Carbon Dioxide 19 mmol/L (22-32); Calcium 8.8 mg/dL (8.6-10.3); Chloride 102 mmol/L (101-111); Globulin 5.8 g/dL (2-4); Glucose 216 mg/dL (70-100); Potassium 3.8 mmol/L (3.5-5.0); Rapid COVID-19 Molecular Undetected (Undetected); Sodium 130 mmol/L (135-145); Total Protein 8.9 g/dL (6.4-8.9); eGFR CKD-EPI 47.9 (>60)
[2021-05-05 06:19] LABS: Troponin I 0.03 ng/mL (<0.03)
[2021-05-05] MEDS ORDERED: Iodixanol (CONTRAST) 320 MG/ML 100 ML SDV IV ONE (06:25)
[2021-05-05] MEDS ORDERED: Acetaminophen IV 1 GM/100ML 0 ML IV ONE (08:26)
[2021-05-05] MEDS ORDERED: Acetaminophen IV 1 GM/100ML 100 ML IV ONE (08:30)
[2021-05-05 09:40] LABS: Urine Appearance Cloudy; Urine Bilirubin Negative (Negative); Urine Blood Negative (Negative); Urine Color Yellow; Urine Glucose 1+(50 mg/dL) (Negative); Urine Ketones Negative (Negative); Urine Nitrite Negative (Negative); Urine Protein 1+(30 mg/dL) (Negative); Urine Specific Gravity 1.032 (1.002-1.030); Urine Urobilinogen Negative (Negative)
[2021-05-05 10:18] LABS: Urine Bacteria 1+ (Absent); Urine Red Blood Cell Trace(0-2/hpf) (Absent); Urine Squamous Epithelial Cell Present (Absent); Urine White Blood Cell Trace(0-5/hpf) (Absent)
[2021-05-05] MEDS ORDERED: Piperacillin/Tazobac ADVAN 3.375 GM in NS 0.9% 100 ml BAG 100 ML IV ONE ×2 (10:24→18:30)
[2021-05-05] MEDS ORDERED: Zosyn per Pharmacy NOTE FOLLOW UP SCH (11:00)
[2021-05-05] MEDS ORDERED: Polyethylene Glycol 3350 17 GM PACKET PO PRN (11:17)
[2021-05-05] MEDS ORDERED: Dextrose 50% Syringe 50 ml 25 GM/50 ML SYRINGE IV PUSH PRN (11:24)
[2021-05-05] MEDS ORDERED: Ondansetron ODT 4 mg TAB 4 MG TAB PO PRN (11:25)
[2021-05-05] MEDS ORDERED: Linezolid 600 MG IVPREMIX(*) 600 MG/300 ML BAG IVPB ONE (11:28)
[2021-05-05] MEDS: Aspirin EC 81 mg TAB.EC (enteric coated) PO SCH (11:34)
[2021-05-05] MEDS ORDERED: Vancomycin 1,250 MG in NS 0.9% 250 ml 250 ML IVPB SCH (12:00)
[2021-05-05] MEDS ORDERED: Magnesium Sulf 4 GM/100 ML IV 4,000 MG/100 ML BAG IVPB ONE (14:28)
[2021-05-05] MEDS: ZOSYN 3.375 GM Q8H per EXTENDED INFUSION IV SCH (16:47)
[2021-05-05] MEDS: Insulin GLARGINE 100 un/ml 10 ml VIAL SUBCUT SCH (20:18)
[2021-05-05] MEDS: PAIN RELIEVING RUB (MENTHOL/SALICYLATE) 1 APPLIC TUBE TOPICAL PRN (21:33)
[2021-05-05] MEDS: Linezolid 600 MG IVPREMIX(*) 600 MG/300 ML BAG IVPB SCH (23:27)
[2021-05-06] MEDS: ZOSYN 3.375 GM Q8H per EXTENDED INFUSION IV SCH ×3 (00:35→16:30)
[2021-05-06 06:34] LABS: ABS Lymphocytes 0.3 10^3/ul (1.0-4.8); ABS Monocytes 0.1 10^3/ul (0-0.8); Eosinophil % 0.5 %; Hematocrit 27 % (35-47); Lymphocyte % 8.5 %; Mean Corpuscular HGB Conc 34 g/dL (31-36); Mean Corpuscular Hemoglobin 31 pg (27-31); Mean Corpuscular Volume 92 fL (80-97); Mean Platelet Volume 8.2 fL (7.4-10.4); Platelet Count 175 10^3/uL (150-450); Red Blood Count 2.92 10^6 /uL (3.70-4.87); Red Cell Distribution Width 15 % (10-15); White Blood Count 3.4 10^3/uL (3.5-10.8)
[2021-05-06 06:57] LABS: Albumin 2.3 g/dL (3.2-5.2); Albumin/Globulin Ratio 0.5 (1-3); Alkaline Phosphatase 61 U/L (35-149); Anion Gap 6 mmol/L (2-11); Blood Urea Nitrogen 28 mg/dL (6-24); CO2 Carbon Dioxide 22 mmol/L (22-32); Chloride 104 mmol/L (101-111); Globulin 4.7 g/dL (2-4); Glucose 131 mg/dL (70-100); Indirect Bilirubin 0.7 mg/dL (0.3-1.0); Magnesium 1.8 mg/dL (1.9-2.7); Sodium 132 mmol/L (135-145); eGFR CKD-EPI 42.4 (>60)
[2021-05-06 07:04] LABS: Troponin I 0.14 ng/mL (<0.03)
[2021-05-06 07:20] LABS: ALT 1186 U/L (7-52); AST 2273 U/L (13-39)
[2021-05-06] MEDS: Aspirin EC 81 mg TAB.EC (enteric coated) PO SCH (07:47)
[2021-05-06 08:12] LABS: C Reactive Protein 154.62 mg/L (<8.01)
[2021-05-06 11:45] LABS: Lipase 88 U/L (11.0-82.0)
[2021-05-06] MEDS: Linezolid 600 MG IVPREMIX(*) 600 MG/300 ML BAG IVPB SCH (12:02)
[2021-05-06 12:44] LABS: Hepatitis B Surface Antigen Nonreactive (Nonreactive)
[2021-05-06 12:49] LABS: Hepatitis A Ab IgM Negative (Negative); Hepatitis B Core IgM Nonreactive (Nonreactive)
[2021-05-06 13:01] LABS: Hepatitis C Antibody Negative (Negative)
[2021-05-06] MEDS ORDERED: Magnesium Sulfate 2 gm BAG 2 GM/50 ML BAG IVPB ONE (15:28)
[2021-05-06] MEDS: Insulin GLARGINE 100 un/ml 10 ml VIAL SUBCUT SCH (20:43)
[2021-05-06] MEDS: PAIN RELIEVING RUB (MENTHOL/SALICYLATE) 1 APPLIC TUBE TOPICAL PRN (20:48)
[2021-05-07] MEDS: ZOSYN 3.375 GM Q8H per EXTENDED INFUSION IV SCH ×3 (00:11→15:49)
[2021-05-07 05:47] LABS: ABS Eosinophils 0.1 10^3/ul (0-0.6); ABS Lymphocytes 0.5 10^3/ul (1.0-4.8); ABS Monocytes 0.1 10^3/ul (0-0.8); ABS Neutrophils 2.4 10^3/ul (1.5-7.7); Eosinophil % 2.2 %; Hematocrit 25 % (35-47); Hemoglobin 8.6 g/dL (12.0-16.0); Lymphocyte % 16.9 %; Mean Corpuscular HGB Conc 34 g/dL (31-36); Mean Corpuscular Hemoglobin 31 pg (27-31); Mean Corpuscular Volume 92 fL (80-97); Mean Platelet Volume 8.5 fL (7.4-10.4); Nucleated Red Blood Cells % 0.1; Platelet Count 194 10^3/uL (150-450); Red Blood Count 2.75 10^6 /uL (3.70-4.87); Red Cell Distribution Width 15 % (10-15); White Blood Count 3.2 10^3/uL (3.5-10.8)
[2021-05-07 06:01] LABS: Calcium 8.2 mg/dL (8.6-10.3); Magnesium 2.1 mg/dL (1.9-2.7); Potassium 3.9 mmol/L (3.5-5.0); eGFR CKD-EPI 45.6 (>60)
[2021-05-07 08:11] LABS: Albumin 2.3 g/dL (3.2-5.2); Albumin/Globulin Ratio 0.5 (1-3); Direct Bilirubin 1.4 mg/dL (0.03-0.18); Globulin 4.8 g/dL (2-4); Indirect Bilirubin 0.7 mg/dL (0.3-1.0); Total Bilirubin 2.1 mg/dL (0.2-1.0); Total Protein 7.1 g/dL (6.4-8.9)
[2021-05-07] MEDS: Aspirin EC 81 mg TAB.EC (enteric coated) PO SCH (09:38)
[2021-05-07 09:58] LABS: INR 1.59 (0.86-1.15)
[2021-05-07 14:29] LABS: Kappa Free Light Chain 21.6 mg/dL; Lambda Free Light Chain, S 12.2 mg/dL
[2021-05-07 15:15] LABS: Bartonella Henselae IgM <1:20 titer (<1:20); Bartonella Quintana IgM <1:20 titer (<1:20)
[2021-05-07 16:08] LABS: Albumin 2.8 g/dL (3.4-4.7); Albumin/Globulin Ratio 0.44; Total Protein(PEP) 9.1 g/dL (6.3 - 7.9)
[2021-05-07 16:12] LABS: Albumin 2.6 g/dL (3.2-5.2); Albumin/Globulin Ratio 0.5 (1-3); Alkaline Phosphatase 112 U/L (35-149); Globulin 5.2 g/dL (2-4); Indirect Bilirubin 0.7 mg/dL (0.3-1.0); Total Protein 7.8 g/dL (6.4-8.9)
[2021-05-07 16:31] LABS: ALT 1391 U/L (7-52); AST 2044 U/L (13-39)
[2021-05-07 16:34] LABS: Troponin I 0.05 ng/mL (<0.03)
[2021-05-07 19:34] LABS: Acetaminophen < 15 mcg/mL; Alcohol, S < 13 mg/dL (<13)
[2021-05-07] MEDS: Insulin GLARGINE 100 un/ml 10 ml VIAL SUBCUT SCH (21:34)
[2021-05-07 22:04] LABS: C-ANCA Negative (Negative); P-ANCA Indeterminate (Negative)
[2021-05-07 22:09] LABS: Myeloperoxidase Antibody <0.2 U; Proteinase 3 <0.2 U
[2021-05-07 22:17] LABS: T4, Total 8.84 mcg/dL (6.09-12.23)
[2021-05-07 22:19] LABS: TSH Ultra Thyroid Stim Horm 2.06 mcIU/mL (0.34-5.60)
[2021-05-07 22:22] LABS: Free T4 1.17 ng/dL (0.61-1.12)
[2021-05-07 22:26] LABS: Urine Benzodiazepine Screen Presumptive Positive (None Detect); Urine Cannabinoids Screen None Detected (None Detect); Urine Opiates Screen None Detected (None Detect)
[2021-05-07] MEDS: Hydrocortisone INJ 100 MG/2ML 2 ML VIAL IV SCH (22:48)
[2021-05-07 23:33] LABS: Albumin 15.1 mg/dL; Albumin/Globulin Ratio 0.32; Gamma Globulin 30.2 mg/dL; Protein,Total, Random Urine 63 mg/dL
[2021-05-08] MEDS: Hydrocortisone INJ 100 MG/2ML 2 ML VIAL IV SCH ×3 (05:34→21:49)
[2021-05-08] MEDS ORDERED: Senna TAB 8.6 mg TAB PO PRN (07:29)
[2021-05-08 08:09] LABS: ABS Lymphocytes 0.5 10^3/ul (1.0-4.8); ABS Neutrophils 1.8 10^3/ul (1.5-7.7); Eosinophil % 0.3 %; Hematocrit 30 % (35-47); Hemoglobin 10.1 g/dL (12.0-16.0); Lymphocyte % 19.7 %; Mean Corpuscular HGB Conc 33 g/dL (31-36); Mean Corpuscular Hemoglobin 31 pg (27-31); Mean Corpuscular Volume 92 fL (80-97); Mean Platelet Volume 8.4 fL (7.4-10.4); Platelet Count 273 10^3/uL (150-450); Red Blood Count 3.29 10^6 /uL (3.70-4.87); Red Cell Distribution Width 15 % (10-15); White Blood Count 2.3 10^3/uL (3.5-10.8)
[2021-05-08 08:26] LABS: Albumin 2.7 g/dL (3.2-5.2); Albumin/Globulin Ratio 0.4 (1-3); Calcium 8.8 mg/dL (8.6-10.3); Direct Bilirubin 1.9 mg/dL (0.03-0.18); Globulin 6.1 g/dL (2-4); Indirect Bilirubin 0.8 mg/dL (0.3-1.0); Magnesium 1.9 mg/dL (1.9-2.7); Potassium 4.4 mmol/L (3.5-5.0); Total Bilirubin 2.7 mg/dL (0.2-1.0); Total Protein 8.8 g/dL (6.4-8.9)
[2021-05-08] MEDS: Aspirin EC 81 mg TAB.EC (enteric coated) PO SCH (08:52)
[2021-05-08 09:06] LABS: INR 1.22 (0.86-1.15)
[2021-05-08] MEDS: Enoxaparin 40 MG/0.4 ML SYR SUBCUT SCH (11:59)
[2021-05-08 13:25] LABS: Corrected Retic Count 0.8 % (0.5-1.5); Hematocrit for Retic CNT 31 % (35-47); Immature Retic Fraction 0.53; RBC Retic Count 3.31 10^6/uL (3.70-4.87)
[2021-05-08 14:04] LABS: Folate 17.64 ng/mL (5.90-24.80)
[2021-05-08 15:42] LABS: Hepatitis B Surface Ab Not Immune (Immune)
[2021-05-08 16:54] LABS: Total Bilirubin 2.4 mg/dL (0.2-1.0); Total Protein 8.3 g/dL (6.4-8.9)
[2021-05-08 17:30] LABS: Albumin 2.8 g/dL (3.2-5.2); Albumin/Globulin Ratio 0.5 (1-3); Globulin 5.5 g/dL (2-4); Indirect Bilirubin 0.4 mg/dL (0.3-1.0)
[2021-05-08] MEDS ORDERED: Insulin GLARGINE 100 un/ml 10 ml VIAL SUBCUT SCH (21:00)
[2021-05-09] MEDS: Hydrocortisone INJ 100 MG/2ML 2 ML VIAL IV SCH ×4 (02:42→21:53)
[2021-05-09 06:55] LABS: ABS Lymphocytes 0.7 10^3/ul (1.0-4.8); ABS Monocytes 0.2 10^3/ul (0-0.8); ABS Neutrophils 2.5 10^3/ul (1.5-7.7); Hematocrit 26 % (35-47); Hemoglobin 8.8 g/dL (12.0-16.0); Lymphocyte % 20.2 %; Mean Corpuscular HGB Conc 34 g/dL (31-36); Mean Corpuscular Hemoglobin 31 pg (27-31); Mean Corpuscular Volume 91 fL (80-97); Mean Platelet Volume 8.5 fL (7.4-10.4); Platelet Count 218 10^3/uL (150-450); Red Blood Count 2.86 10^6 /uL (3.70-4.87); Red Cell Distribution Width 15 % (10-15); White Blood Count 3.4 10^3/uL (3.5-10.8)
[2021-05-09 07:00] LABS: INR 1.12 (0.86-1.15)
[2021-05-09 07:11] LABS: Albumin 2.6 g/dL (3.2-5.2); Albumin/Globulin Ratio 0.5 (1-3); C Reactive Protein 62.41 mg/L (<8.01); Calcium 8.4 mg/dL (8.6-10.3); Direct Bilirubin 1.1 mg/dL (0.03-0.18); Globulin 5.4 g/dL (2-4); Indirect Bilirubin 0.7 mg/dL (0.3-1.0); Magnesium 1.8 mg/dL (1.9-2.7); Potassium 3.9 mmol/L (3.5-5.0); Total Bilirubin 1.8 mg/dL (0.2-1.0); eGFR CKD-EPI 57.5 (>60)
[2021-05-09] MEDS ORDERED: Magnesium Sulfate IV 1GM/100ML 1 GM/100 ML BAG IV ONE (07:20)
[2021-05-09] MEDS: Aspirin EC 81 mg TAB.EC (enteric coated) PO SCH (08:13)
[2021-05-09] MEDS: Enoxaparin 40 MG/0.4 ML SYR SUBCUT SCH (10:16)
[2021-05-09] MEDS: PAIN RELIEVING RUB (MENTHOL/SALICYLATE) 1 APPLIC TUBE TOPICAL PRN (19:43)
[2021-05-09] MEDS ORDERED: Insulin GLARGINE 100 un/ml 10 ml VIAL SUBCUT SCH (21:00)
[2021-05-09] MEDS: Magnesium Hydroxide LIQ 30 ML UDC PO SCH (21:53)
[2021-05-10] MEDS: Hydrocortisone INJ 100 MG/2ML 2 ML VIAL IV SCH ×4 (02:47→21:11)
[2021-05-10 05:39] LABS: ABS Lymphocytes 0.7 10^3/ul (1.0-4.8); ABS Monocytes 0.3 10^3/ul (0-0.8); ABS Neutrophils 3.2 10^3/ul (1.5-7.7); Hematocrit 26 % (35-47); Hemoglobin 8.7 g/dL (12.0-16.0); Lymphocyte % 15.8 %; Mean Corpuscular HGB Conc 33 g/dL (31-36); Mean Corpuscular Hemoglobin 31 pg (27-31); Mean Corpuscular Volume 93 fL (80-97); Mean Platelet Volume 8.5 fL (7.4-10.4); Platelet Count 241 10^3/uL (150-450); Red Cell Distribution Width 15 % (10-15); White Blood Count 4.2 10^3/uL (3.5-10.8)
[2021-05-10 05:44] LABS: INR 1.08 (0.86-1.15)
[2021-05-10 06:16] LABS: Potassium 3.9 mmol/L (3.5-5.0); Total Bilirubin 1.1 mg/dL (0.2-1.0)
[2021-05-10 06:17] LABS: Albumin 2.6 g/dL (3.2-5.2); Albumin/Globulin Ratio 0.5 (1-3); Calcium 8.4 mg/dL (8.6-10.3); Globulin 5.4 g/dL (2-4); Magnesium 2.1 mg/dL (1.9-2.7)
[2021-05-10] MEDS: Magnesium Hydroxide LIQ 30 ML UDC PO SCH ×2 (07:36→21:11)
[2021-05-10] MEDS: Aspirin EC 81 mg TAB.EC (enteric coated) PO SCH (08:41)
[2021-05-10 10:23] LABS: Cytomegalovirus IgG Antibody Positive (Negative); EBV Capsid Ag IgG Ab Positive (Negative); EBV Capsid Ag IgM Ab Negative (Negative); Epstein-Barr Nuclear Antigen Positive (Negative)
[2021-05-10] MEDS: Enoxaparin 40 MG/0.4 ML SYR SUBCUT SCH (13:17)
[2021-05-10 15:01] LABS: Immunoglobulin Subclass IgG4 34.2 mg/dL
[2021-05-10 16:01] LABS: CMV DNA DETECT/QT, P Undetected IU/mL (Undetected)
[2021-05-10] MEDS ORDERED: Insulin GLARGINE 100 un/ml 10 ml VIAL SUBCUT SCH (21:00)
[2021-05-11] MEDS: Hydrocortisone INJ 100 MG/2ML 2 ML VIAL IV SCH ×3 (03:45→14:18)
[2021-05-11 05:38] LABS: ABS Lymphocytes 0.9 10^3/ul (1.0-4.8); ABS Monocytes 0.4 10^3/ul (0-0.8); ABS Neutrophils 3.1 10^3/ul (1.5-7.7); Eosinophil % 0.1 %; Hematocrit 25 % (35-47); Hemoglobin 8.2 g/dL (12.0-16.0); Lymphocyte % 21.1 %; Mean Corpuscular HGB Conc 33 g/dL (31-36); Mean Corpuscular Hemoglobin 31 pg (27-31); Mean Corpuscular Volume 92 fL (80-97); Mean Platelet Volume 8.6 fL (7.4-10.4); Nucleated Red Blood Cells % 0.1; Platelet Count 225 10^3/uL (150-450); Red Blood Count 2.67 10^6 /uL (3.70-4.87); Red Cell Distribution Width 15 % (10-15); White Blood Count 4.5 10^3/uL (3.5-10.8)
[2021-05-11 06:01] LABS: Calcium 8.1 mg/dL (8.6-10.3); Magnesium 1.9 mg/dL (1.9-2.7); Potassium 3.5 mmol/L (3.5-5.0); eGFR CKD-EPI 54.9 (>60)
[2021-05-11] MEDS: Magnesium Hydroxide LIQ 30 ML UDC PO SCH (07:34)
[2021-05-11] MEDS: Aspirin EC 81 mg TAB.EC (enteric coated) PO SCH (07:34)
[2021-05-11 12:06] LABS: Total Iron Binding Capacity 350 mcg/dL (250-450); Transferrin 250 mg/dL (203-362)
[2021-05-11 12:07] LABS: % Iron Saturation 6 % (15-55); Iron < 20 ug/dL (50-212); Unsaturated Iron Binding < 335 ug/dL
[2021-05-11 12:34] LABS: Ferritin 25.8 ng/mL (11-307)
[2021-05-11] MEDS: Enoxaparin 40 MG/0.4 ML SYR SUBCUT SCH (12:39)
[2021-05-11 13:02] LABS: Hepatitis B DNA Quantitative Undetected IU/mL (Undetected)
[2021-05-11 13:14] LABS: Hematocrit 28 % (35-47); Hemoglobin 9.3 g/dL (12.0-16.0)
[2021-05-11 14:13] LABS: Complement C3 86 mg/dL (75 - 175)
[2021-05-11 14:24] LABS: Immunoglobulin A 441 mg/dL (61 - 356); Immunoglobulin G 3810 mg/dL (767 - 1590); Immunoglobulin M 166 mg/dL (37 - 286)
[2021-05-11 15:04] LABS: Aldolase 24.5 U/L (<7.7)
[2021-05-11] MEDS ORDERED: COVID-19 VACCINE, MRNA(MODERNA) BOOSTER/PF 50 MCG/0.25 ML IM ONE (15:50)
[2021-05-11 15:56] LABS: JO-1 Antibody <0.2 U; RNP Antibody, IgG <0.2 U; SS-A/Ro Antibody <0.2 U; SS-B/La Antibody <0.2 U; Sm (Smith) IgG Antibody <0.2 U
[2021-05-11] MEDS ORDERED: Iron Sucrose 200 MG in NS 0.9% 100 ml BAG 100 ML IVPB ONE (16:00)
[2021-05-11 18:10] VITALS: BP 100/53
[2021-05-12 13:30] LABS: Liver/Kidney Microsomes Ab <5.0 U
[2021-05-13 14:44] LABS: HSV 1 DNA NOT DETECTED; HSV 2 DNA NOT DETECTED; Source PLASMA
== END 2021-05-11 18:15 | disposition home health service (06) | DRG 871 ==
LOC: ED 04:59 → EDHOLD 11:16 → SUATTDRO 11:16 → MED 14:57
PROVIDERS: ADMIT Internal Medicine; ATTEND Internal Medicine

== ENCOUNTER 2022-07-09 13:38 | Inpatient (IN) ==
[2022-07-09] MEDS ORDERED: Morphine 4 MG/ML VIAL (1 ml) IV ONE ×2 (15:17→17:22)
[2022-07-09] MEDS ORDERED: Ondansetron 4 mg VIAL 2 MG/ML 2 ml VIAL IV ONE (15:17)
[2022-07-09] MEDS ORDERED: NS 0.9% 1000 ml BAG 1,000 ML IV ONE (15:17)
[2022-07-09 15:31] LABS: ABS Eosinophils 0.1 10^3/ul (0-0.6); ABS Lymphocytes 2.3 10^3/ul (1.0-4.8); ABS Monocytes 0.4 10^3/ul (0-0.8); ABS Neutrophils 3.6 10^3/ul (1.5-7.7); Eosinophil % 1.5 %; Hematocrit 36 % (35-47); Hemoglobin 11.8 g/dL (12.0-16.0); Mean Corpuscular HGB Conc 33 g/dL (31-36); Mean Corpuscular Hemoglobin 32 pg (27-31); Mean Corpuscular Volume 97 fL (80-97); Mean Platelet Volume 8.1 fL (7.4-10.4); Platelet Count 320 10^3/uL (150-450); Red Cell Distribution Width 14 % (10-15); White Blood Count 6.5 10^3/uL (3.5-10.8)
[2022-07-09 15:36] LABS: Urine Appearance Cloudy; Urine Bilirubin Negative (Negative); Urine Blood Negative (Negative); Urine Color Amber; Urine Glucose 2+(150 mg/dL) (Negative); Urine Ketones Negative (Negative); Urine Nitrite Negative (Negative); Urine Protein 2+(100 mg/dL) (Negative); Urine Specific Gravity 1.025 (1.002-1.030); Urine Urobilinogen Negative (Negative)
[2022-07-09 15:44] LABS: Urine Bacteria Absent (Absent); Urine Red Blood Cell Absent (Absent); Urine Squamous Epithelial Cell Present (Absent); Urine White Blood Cell Absent (Absent)
[2022-07-09 16:11] LABS: Albumin 3.2 g/dL (3.2-5.2); Albumin/Globulin Ratio 0.4 (1-3); Calcium 8.9 mg/dL (8.6-10.3); Creatinine, Serum 1.32 mg/dL (0.51-0.95); Globulin 7.2 g/dL (2-4); Magnesium 1.7 mg/dL (1.9-2.7); Potassium 4.4 mmol/L (3.5-5.0); Total Bilirubin 0.5 mg/dL (0.2-1.0); Total Protein 10.4 g/dL (6.4-8.9); eGFR CKD-EPI 42.9 (>60)
[2022-07-09] MEDS ORDERED: Iodixanol (CONTRAST) 320 MG/ML 100 ML SDV IV ONE (16:32)
[2022-07-09] MEDS ORDERED: Magnesium Sulfate 2 gm BAG 2 GM/50 ML BAG IVPB ONE (16:32)
[2022-07-09] MEDS ORDERED: Ciprofloxacin 400mg IVPREMIX 400 MG/200 ML BAG IVPB ONE (18:07)
[2022-07-09] MEDS ORDERED: metroNIDAZOLE IV 500 MG/100ML 500 MG/100 ML BAG IVPB ONE (18:07)
[2022-07-09] MEDS ORDERED: Ondansetron 4 mg VIAL 2 MG/ML 2 ml VIAL IV PRN (18:50)
[2022-07-09] MEDS ORDERED: Morphine 2 MG/ML SYRINGE IV PRN (18:56)
[2022-07-09 19:21] LABS: C Reactive Protein 68.32 mg/L (<8.01)
[2022-07-09] MEDS ORDERED: Piperacillin/Tazobac ADVAN 3.375 GM in NS 0.9% 100 ml BAG 100 ML IV ONE (20:04)
[2022-07-09] MEDS: Lactated Ringers 1000 ml BAG 1,000 ML IV SCH (20:13)
[2022-07-09] MEDS: Enoxaparin 30 MG/0.3 ML SYR SUBCUT SCH (20:20)
[2022-07-09] MEDS: Pantoprazole VIAL 40 MG VIAL IV SCH ×2 (20:21→22:02)
[2022-07-09] MEDS ORDERED: Dextrose 50% Syringe 50 ml 25 GM/50 ML SYRINGE IV PUSH PRN (20:27)
[2022-07-09] MEDS ORDERED: Zosyn per Pharmacy NOTE FOLLOW UP SCH (21:00)
[2022-07-09] MEDS: Acetaminophen IV 1 GM/100ML 1,000 MG/100 ML BAG IV PRN (22:38)
[2022-07-09 22:47] LABS: Osmolality Serum 303 mOsm/kg (275-295)
[2022-07-10] MEDS: ZOSYN 3.375 GM Q8H per EXTENDED INFUSION IV SCH ×3 (01:44→17:46)
[2022-07-10] MEDS: Lactated Ringers 1000 ml BAG 1,000 ML IV SCH (04:37)
[2022-07-10 06:06] LABS: ABS Eosinophils 0.1 10^3/ul (0-0.6); ABS Lymphocytes 1.6 10^3/ul (1.0-4.8); ABS Monocytes 0.3 10^3/ul (0-0.8); ABS Neutrophils 1.9 10^3/ul (1.5-7.7); Eosinophil % 1.8 %; Hematocrit 31 % (35-47); Lymphocyte % 41.9 %; Mean Corpuscular HGB Conc 33 g/dL (31-36); Mean Corpuscular Hemoglobin 32 pg (27-31); Mean Corpuscular Volume 97 fL (80-97); Mean Platelet Volume 8.7 fL (7.4-10.4); Nucleated Red Blood Cells % 0.1; Platelet Count 195 10^3/uL (150-450); Red Blood Count 3.17 10^6 /uL (3.70-4.87); Red Cell Distribution Width 14 % (10-15); White Blood Count 3.8 10^3/uL (3.5-10.8)
[2022-07-10 06:19] LABS: Creatinine, Serum 1.15 mg/dL (0.51-0.95); Magnesium 1.9 mg/dL (1.9-2.7); Potassium 3.9 mmol/L (3.5-5.0); eGFR CKD-EPI 50.6 (>60)
[2022-07-10] MEDS: Aspirin EC 81 mg TAB.EC (enteric coated) PO SCH (09:40)
[2022-07-10] MEDS: Morphine 2 MG/ML SYRINGE IV PRN (10:10)
[2022-07-10] MEDS: Acetaminophen IV 1 GM/100ML 1,000 MG/100 ML BAG IV PRN ×2 (15:27→21:44)
[2022-07-10] MEDS: Pantoprazole VIAL 40 MG VIAL IV SCH (21:31)
[2022-07-10] MEDS: Enoxaparin 30 MG/0.3 ML SYR SUBCUT SCH (21:34)
[2022-07-11] MEDS: Morphine 2 MG/ML SYRINGE IV PRN ×2 (02:04→17:51)
[2022-07-11] MEDS: ZOSYN 3.375 GM Q8H per EXTENDED INFUSION IV SCH ×3 (02:08→17:50)
[2022-07-11 06:10] LABS: ABS Eosinophils 0.1 10^3/ul (0-0.6); ABS Lymphocytes 1.4 10^3/ul (1.0-4.8); ABS Monocytes 0.3 10^3/ul (0-0.8); ABS Neutrophils 1.9 10^3/ul (1.5-7.7); Hematocrit 31 % (35-47); Hemoglobin 10.1 g/dL (12.0-16.0); Lymphocyte % 37.8 %; Mean Corpuscular HGB Conc 33 g/dL (31-36); Mean Corpuscular Hemoglobin 32 pg (27-31); Mean Corpuscular Volume 97 fL (80-97); Mean Platelet Volume 8.2 fL (7.4-10.4); Platelet Count 204 10^3/uL (150-450); Red Blood Count 3.18 10^6 /uL (3.70-4.87); Red Cell Distribution Width 15 % (10-15); White Blood Count 3.6 10^3/uL (3.5-10.8)
[2022-07-11 06:24] LABS: Calcium 8.2 mg/dL (8.6-10.3); Creatinine, Serum 1.29 mg/dL (0.51-0.95); Magnesium 1.6 mg/dL (1.9-2.7); Potassium 4.2 mmol/L (3.5-5.0); eGFR CKD-EPI 44.1 (>60)
[2022-07-11] MEDS ORDERED: Magnesium Sulf 4 GM/100 ML IV 4,000 MG/100 ML BAG IVPB ONE (07:19)
[2022-07-11] MEDS: Aspirin EC 81 mg TAB.EC (enteric coated) PO SCH (08:09)
[2022-07-11] MEDS: Acetaminophen IV 1 GM/100ML 1,000 MG/100 ML BAG IV PRN (12:28)
[2022-07-11] MEDS ORDERED: Dextrose 50% Syringe 50 ml 25 GM/50 ML SYRINGE IV PUSH PRN (18:28)
[2022-07-11] MEDS: Enoxaparin 30 MG/0.3 ML SYR SUBCUT SCH (20:00)
[2022-07-12] MEDS: ZOSYN 3.375 GM Q8H per EXTENDED INFUSION IV SCH ×3 (03:17→17:20)
[2022-07-12 05:58] LABS: ABS Eosinophils 0.1 10^3/ul (0-0.6); ABS Lymphocytes 1.7 10^3/ul (1.0-4.8); ABS Monocytes 0.4 10^3/ul (0-0.8); ABS Neutrophils 2.2 10^3/ul (1.5-7.7); Hematocrit 33 % (35-47); Hemoglobin 10.9 g/dL (12.0-16.0); Lymphocyte % 38.7 %; Mean Corpuscular HGB Conc 33 g/dL (31-36); Mean Corpuscular Hemoglobin 32 pg (27-31); Mean Corpuscular Volume 97 fL (80-97); Mean Platelet Volume 8.6 fL (7.4-10.4); Nucleated Red Blood Cells % 0.1; Platelet Count 226 10^3/uL (150-450); Red Blood Count 3.44 10^6 /uL (3.70-4.87); Red Cell Distribution Width 14 % (10-15); White Blood Count 4.3 10^3/uL (3.5-10.8)
[2022-07-12 06:18] LABS: Calcium 8.3 mg/dL (8.6-10.3); Creatinine, Serum 1.12 mg/dL (0.51-0.95); Magnesium 1.9 mg/dL (1.9-2.7); Potassium 4.2 mmol/L (3.5-5.0); eGFR CKD-EPI 52.2 (>60)
[2022-07-12] MEDS: Aspirin EC 81 mg TAB.EC (enteric coated) PO SCH (08:50)
[2022-07-12] MEDS: Morphine 2 MG/ML SYRINGE IV PRN (09:47)
[2022-07-12] MEDS: Enoxaparin 30 MG/0.3 ML SYR SUBCUT SCH (20:22)
[2022-07-12] MEDS: PAIN RELIEVING RUB (MENTHOL/SALICYLATE) 1 APPLIC TUBE TOPICAL PRN (22:03)
[2022-07-13] MEDS: ZOSYN 3.375 GM Q8H per EXTENDED INFUSION IV SCH ×3 (02:56→17:48)
[2022-07-13 06:11] LABS: ABS Eosinophils 0.1 10^3/ul (0-0.6); ABS Lymphocytes 1.8 10^3/ul (1.0-4.8); ABS Monocytes 0.4 10^3/ul (0-0.8); ABS Neutrophils 2.1 10^3/ul (1.5-7.7); Eosinophil % 1.7 %; Hematocrit 33 % (35-47); Hemoglobin 11.1 g/dL (12.0-16.0); Lymphocyte % 40.1 %; Mean Corpuscular HGB Conc 34 g/dL (31-36); Mean Corpuscular Hemoglobin 33 pg (27-31); Mean Corpuscular Volume 97 fL (80-97); Mean Platelet Volume 8.6 fL (7.4-10.4); Nucleated Red Blood Cells % 0.2; Platelet Count 206 10^3/uL (150-450); Red Blood Count 3.36 10^6 /uL (3.70-4.87); Red Cell Distribution Width 14 % (10-15); White Blood Count 4.4 10^3/uL (3.5-10.8)
[2022-07-13 06:37] LABS: Albumin 2.8 g/dL (3.2-5.2); Creatinine, Serum 1.11 mg/dL (0.51-0.95); eGFR CKD-EPI 52.8 (>60)
[2022-07-13 06:44] LABS: Albumin/Globulin Ratio 0.5 (1-3); Calcium 8.5 mg/dL (8.6-10.3); Globulin 5.8 g/dL (2-4); Magnesium 1.6 mg/dL (1.9-2.7); Phosphorus 2.8 mg/dL (2.5-5.0); Total Bilirubin 0.4 mg/dL (0.2-1.0); Total Protein 8.6 g/dL (6.4-8.9)
[2022-07-13] MEDS ORDERED: Magnesium Sulf 4 GM/100 ML IV 4,000 MG/100 ML BAG IVPB ONE (06:46)
[2022-07-13] MEDS: Aspirin EC 81 mg TAB.EC (enteric coated) PO SCH (09:58)
[2022-07-13] MEDS: Enoxaparin 30 MG/0.3 ML SYR SUBCUT SCH (20:04)
[2022-07-13] MEDS: PAIN RELIEVING RUB (MENTHOL/SALICYLATE) 1 APPLIC TUBE TOPICAL PRN (20:04)
[2022-07-14] MEDS: ZOSYN 3.375 GM Q8H per EXTENDED INFUSION IV SCH ×3 (03:35→17:45)
[2022-07-14 06:04] LABS: ABS Eosinophils 0.1 10^3/ul (0-0.6); ABS Monocytes 0.4 10^3/ul (0-0.8); ABS Neutrophils 2.2 10^3/ul (1.5-7.7); Eosinophil % 1.7 %; Hematocrit 33 % (35-47); Hemoglobin 10.7 g/dL (12.0-16.0); Lymphocyte % 42.8 %; Mean Corpuscular HGB Conc 33 g/dL (31-36); Mean Corpuscular Hemoglobin 32 pg (27-31); Mean Corpuscular Volume 97 fL (80-97); Mean Platelet Volume 8.1 fL (7.4-10.4); Platelet Count 232 10^3/uL (150-450); Red Blood Count 3.36 10^6 /uL (3.70-4.87); Red Cell Distribution Width 15 % (10-15); White Blood Count 4.6 10^3/uL (3.5-10.8)
[2022-07-14 06:23] LABS: Calcium 8.2 mg/dL (8.6-10.3); Creatinine, Serum 1.13 mg/dL (0.51-0.95); Potassium 4.1 mmol/L (3.5-5.0); eGFR CKD-EPI 51.7 (>60)
[2022-07-14] MEDS: Aspirin EC 81 mg TAB.EC (enteric coated) PO SCH (07:33)
[2022-07-14] MEDS: PAIN RELIEVING RUB (MENTHOL/SALICYLATE) 1 APPLIC TUBE TOPICAL PRN ×2 (07:45→20:44)
[2022-07-14] MEDS ORDERED: Iodixanol (CONTRAST) 320 MG/ML 100 ML SDV IV ONE (11:30)
[2022-07-14] MEDS: Acetaminophen IV 1 GM/100ML 1,000 MG/100 ML BAG IV PRN (16:25)
[2022-07-14] MEDS: Enoxaparin 30 MG/0.3 ML SYR SUBCUT SCH (20:43)
[2022-07-14] MEDS ORDERED: Insulin GLARGINE 100 un/ml 10 ml VIAL SUBCUT SCH (21:00)
[2022-07-15] MEDS: ZOSYN 3.375 GM Q8H per EXTENDED INFUSION IV SCH ×2 (02:52→10:16)
[2022-07-15 07:13] LABS: ABS Eosinophils 0.1 10^3/ul (0-0.6); ABS Lymphocytes 1.7 10^3/ul (1.0-4.8); ABS Monocytes 0.3 10^3/ul (0-0.8); ABS Neutrophils 1.5 10^3/ul (1.5-7.7); Eosinophil % 1.9 %; Hematocrit 33 % (35-47); Lymphocyte % 47.9 %; Mean Corpuscular HGB Conc 33 g/dL (31-36); Mean Corpuscular Hemoglobin 32 pg (27-31); Mean Corpuscular Volume 97 fL (80-97); Mean Platelet Volume 8.4 fL (7.4-10.4); Nucleated Red Blood Cells % 0.1; Platelet Count 215 10^3/uL (150-450); Red Blood Count 3.41 10^6 /uL (3.70-4.87); Red Cell Distribution Width 15 % (10-15); White Blood Count 3.5 10^3/uL (3.5-10.8)
[2022-07-15 07:24] LABS: Calcium 8.5 mg/dL (8.6-10.3); Creatinine, Serum 1.26 mg/dL (0.51-0.95); Magnesium 1.8 mg/dL (1.9-2.7); Potassium 4.2 mmol/L (3.5-5.0); eGFR CKD-EPI 45.4 (>60)
[2022-07-15] MEDS ORDERED: Magnesium Sulfate 2 gm BAG 2 GM/50 ML BAG IVPB ONE (07:42)
[2022-07-15] MEDS: Aspirin EC 81 mg TAB.EC (enteric coated) PO SCH (08:33)
[2022-07-15 11:22] VITALS: BP 126/73
[2022-07-15] MEDS ORDERED: Nystatin TOP POWDER 15 GM BTL TOPICAL SCH (21:00)
== END 2022-07-15 14:00 | disposition home or self-care (01) | DRG 392 ==
LOC: EDHOLD 13:38 → ED 13:38 → SUATTDRO 18:50 → EDHOLD 20:40 → MED 21:22 → SUATTDRO 07-10 12:57
PROVIDERS: ADMIT Student in an Organized Health Care Education/Training Program; ATTEND Internal Medicine

== ENCOUNTER 2022-07-16 18:10 | Inpatient (IN) ==
[2022-07-16] MEDS ORDERED: Ondansetron 4 mg VIAL 2 MG/ML 2 ml VIAL IV ONE (18:24)
[2022-07-16 19:59] LABS: ABS Lymphocytes 1.9 10^3/ul (1.0-4.8); ABS Monocytes 0.3 10^3/ul (0-0.8); ABS Neutrophils 2.4 10^3/ul (1.5-7.7); Eosinophil % 0.8 %; Hematocrit 37 % (35-47); Lymphocyte % 40.6 %; Mean Corpuscular HGB Conc 33 g/dL (31-36); Mean Corpuscular Hemoglobin 32 pg (27-31); Mean Corpuscular Volume 97 fL (80-97); Mean Platelet Volume 8.2 fL (7.4-10.4); Platelet Count 255 10^3/uL (150-450); Red Blood Count 3.77 10^6 /uL (3.70-4.87); Red Cell Distribution Width 15 % (10-15); White Blood Count 4.7 10^3/uL (3.5-10.8)
[2022-07-16] MEDS ORDERED: Lactated Ringers 1000 ml BAG 1,000 ML IV ONE (20:24)
[2022-07-16] MEDS ORDERED: Iodixanol (CONTRAST) 320 MG/ML 100 ML SDV IV ONE (20:45)
[2022-07-16] MEDS ORDERED: Morphine 4 MG/ML VIAL (1 ml) IV ONE (20:51)
[2022-07-16 20:55] LABS: Albumin 3.2 g/dL (3.2-5.2); Albumin/Globulin Ratio 0.5 (1-3); C Reactive Protein 10.61 mg/L (<8.01); Calcium 9.2 mg/dL (8.6-10.3); Creatinine, Serum 1.15 mg/dL (0.51-0.95); Globulin 6.5 g/dL (2-4); Total Bilirubin 0.4 mg/dL (0.2-1.0); Total Protein 9.7 g/dL (6.4-8.9); eGFR CKD-EPI 50.6 (>60)
[2022-07-16] MEDS ORDERED: ZOSYN 3.375 GM x ONE DOSE over 30 miuntes IV (23:00)
[2022-07-16] MEDS ORDERED: Dextrose 50% Syringe 50 ml 25 GM/50 ML SYRINGE IV PUSH PRN (23:12)
[2022-07-16] MEDS ORDERED: Acetaminophen IV 1 GM/100ML 1,000 MG/100 ML BAG IV PRN (23:19)
[2022-07-16] MEDS ORDERED: Zosyn per Pharmacy NOTE FOLLOW UP SCH (23:45)
[2022-07-17 01:03] LABS: Urine Appearance Clear; Urine Bilirubin Negative (Negative); Urine Blood Negative (Negative); Urine Color Yellow; Urine Glucose 1+(50 mg/dL) (Negative); Urine Ketones Negative (Negative); Urine Nitrite Negative (Negative); Urine Protein Negative (Negative); Urine Specific Gravity 1.024 (1.002-1.030); Urine Urobilinogen Negative (Negative)
[2022-07-17] MEDS: Enoxaparin 30 MG/0.3 ML SYR SUBCUT SCH ×2 (01:04→20:24)
[2022-07-17] MEDS ORDERED: ZOSYN 3.375 GM Q8H per EXTENDED INFUSION IV SCH (05:00)
[2022-07-17 06:10] LABS: ABS Eosinophils 0.1 10^3/ul (0-0.6); ABS Lymphocytes 1.7 10^3/ul (1.0-4.8); ABS Monocytes 0.3 10^3/ul (0-0.8); Eosinophil % 2.2 %; Hematocrit 34 % (35-47); Hemoglobin 11.1 g/dL (12.0-16.0); Lymphocyte % 40.3 %; Mean Corpuscular HGB Conc 33 g/dL (31-36); Mean Corpuscular Hemoglobin 32 pg (27-31); Mean Corpuscular Volume 97 fL (80-97); Mean Platelet Volume 7.6 fL (7.4-10.4); Nucleated Red Blood Cells % 0.1; Platelet Count 224 10^3/uL (150-450); Red Blood Count 3.47 10^6 /uL (3.70-4.87); Red Cell Distribution Width 15 % (10-15); White Blood Count 4.1 10^3/uL (3.5-10.8)
[2022-07-17 06:43] LABS: Calcium 8.4 mg/dL (8.6-10.3); Creatinine, Serum 1.13 mg/dL (0.51-0.95); Magnesium 1.5 mg/dL (1.9-2.7); Phosphorus 4.3 mg/dL (2.5-5.0); Potassium 4.1 mmol/L (3.5-5.0); eGFR CKD-EPI 51.7 (>60)
[2022-07-17] MEDS ORDERED: Magnesium Sulf 4 GM/100 ML IV 4,000 MG/100 ML BAG IVPB ONE (06:43)
[2022-07-17] MEDS: Aspirin EC 81 mg TAB.EC (enteric coated) PO SCH (11:27)
[2022-07-17] MEDS: Morphine 2 MG/ML SYRINGE IV PRN (11:36)
[2022-07-17] MEDS: Acetaminophen IV 1 GM/100ML 1,000 MG/100 ML BAG IV PRN (19:26)
[2022-07-17] MEDS: Polyethylene Glycol 3350 17 GM PACKET PO SCH (20:23)
[2022-07-17] MEDS: Nystatin TOP POWDER 15 GM BTL TOPICAL PRN (20:25)
[2022-07-17] MEDS ORDERED: Insulin GLARGINE 100 un/ml 10 ml VIAL SUBCUT SCH (21:00)
[2022-07-18 07:19] LABS: ABS Eosinophils 0.1 10^3/ul (0-0.6); ABS Lymphocytes 1.1 10^3/ul (1.0-4.8); ABS Monocytes 0.3 10^3/ul (0-0.8); ABS Neutrophils 3.2 10^3/ul (1.5-7.7); Eosinophil % 1.5 %; Hematocrit 32 % (35-47); Hemoglobin 10.7 g/dL (12.0-16.0); Mean Corpuscular HGB Conc 33 g/dL (31-36); Mean Corpuscular Hemoglobin 33 pg (27-31); Mean Corpuscular Volume 98 fL (80-97); Mean Platelet Volume 8.2 fL (7.4-10.4); Platelet Count 216 10^3/uL (150-450); Red Blood Count 3.28 10^6 /uL (3.70-4.87); Red Cell Distribution Width 15 % (10-15); White Blood Count 4.8 10^3/uL (3.5-10.8)
[2022-07-18 07:33] LABS: Calcium 8.5 mg/dL (8.6-10.3); Creatinine, Serum 1.22 mg/dL (0.51-0.95); Potassium 4.4 mmol/L (3.5-5.0); eGFR CKD-EPI 47.2 (>60)
[2022-07-18] MEDS: Acetaminophen IV 1 GM/100ML 1,000 MG/100 ML BAG IV PRN (07:54)
[2022-07-18] MEDS: Polyethylene Glycol 3350 17 GM PACKET PO SCH ×2 (07:57→23:03)
[2022-07-18] MEDS: Aspirin EC 81 mg TAB.EC (enteric coated) PO SCH (07:59)
[2022-07-18] MEDS: Enoxaparin 30 MG/0.3 ML SYR SUBCUT SCH (22:48)
[2022-07-18] MEDS: Insulin GLARGINE 100 un/ml 10 ml VIAL SUBCUT SCH (23:01)
[2022-07-19 06:18] LABS: Hematocrit 33 % (35-47); Hemoglobin 11.1 g/dL (12.0-16.0); Mean Corpuscular HGB Conc 33 g/dL (31-36); Mean Corpuscular Hemoglobin 32 pg (27-31); Mean Corpuscular Volume 97 fL (80-97); Mean Platelet Volume 8.5 fL (7.4-10.4); Platelet Count 202 10^3/uL (150-450); Red Blood Count 3.42 10^6 /uL (3.70-4.87); Red Cell Distribution Width 15 % (10-15); White Blood Count 5.2 10^3/uL (3.5-10.8)
[2022-07-19 06:42] LABS: Calcium 8.6 mg/dL (8.6-10.3); Creatinine, Serum 1.13 mg/dL (0.51-0.95); Potassium 4.3 mmol/L (3.5-5.0); eGFR CKD-EPI 51.7 (>60)
[2022-07-19] MEDS ORDERED: Ondansetron 4 mg VIAL 2 MG/ML 2 ml VIAL IV PRN (08:28)
[2022-07-19] MEDS: Morphine 2 MG/ML SYRINGE IV PRN (08:43)
[2022-07-19] MEDS ORDERED: Lactulose 30 ml UDC PO SCH (10:00)
[2022-07-19] MEDS ORDERED: Prochlorperazine 5 mg/ml 2 ml VIAL (10 mg) IV PRN (10:45)
[2022-07-19] MEDS: Polyethylene Glycol 3350 17 GM PACKET PO SCH ×2 (10:47→21:55)
[2022-07-19] MEDS: Aspirin EC 81 mg TAB.EC (enteric coated) PO SCH (10:49)
[2022-07-19] MEDS ORDERED: Sodium Phosphate ADULT ENEMA 133 ML BTL PR ONE (11:15)
[2022-07-19] MEDS: Nystatin TOP POWDER 15 GM BTL TOPICAL PRN (21:55)
[2022-07-19] MEDS: Enoxaparin 30 MG/0.3 ML SYR SUBCUT SCH (21:56)
[2022-07-19] MEDS: Insulin GLARGINE 100 un/ml 10 ml VIAL SUBCUT SCH (22:08)
[2022-07-20 06:37] LABS: Hematocrit 34 % (35-47); Hemoglobin 11.5 g/dL (12.0-16.0); Mean Corpuscular HGB Conc 34 g/dL (31-36); Mean Corpuscular Hemoglobin 33 pg (27-31); Mean Corpuscular Volume 97 fL (80-97); Mean Platelet Volume 9.1 fL (7.4-10.4); Platelet Count 220 10^3/uL (150-450); Red Blood Count 3.52 10^6 /uL (3.70-4.87); Red Cell Distribution Width 16 % (10-15); White Blood Count 5.3 10^3/uL (3.5-10.8)
[2022-07-20 06:58] LABS: Blood Urea Nitrogen 16 mg/dL (6-24); CO2 Carbon Dioxide 27 mmol/L (22-32); Calcium 8.6 mg/dL (8.6-10.3); Chloride 103 mmol/L (101-111); Creatinine, Serum 1.19 mg/dL (0.51-0.95); Glucose 196 mg/dL (70-100); Potassium 4.3 mmol/L (3.5-5.0); Sodium 130 mmol/L (135-145); eGFR CKD-EPI 48.6 (>60)
[2022-07-20] MEDS: Polyethylene Glycol 3350 17 GM PACKET PO SCH (09:34)
[2022-07-20] MEDS: Aspirin EC 81 mg TAB.EC (enteric coated) PO SCH (09:35)
[2022-07-20 11:30] VITALS: BP 118/78
== END 2022-07-20 12:50 | disposition home or self-care (01) | DRG 392 ==
LOC: ED 18:10 → EDHOLD 18:10 → SUATTDRO 22:16 → EDHOLD 07-17 01:37 → MED 07-17 01:48 → SUATTDRO 07-18 14:08
PROVIDERS: ADMIT Internal Medicine; ATTEND Hospitalist

== ENCOUNTER 2024-01-05 22:55 | Inpatient (IN) ==
[2024-01-05 23:22] LABS: ABS Eosinophils 0.1 10^3/uL (0.0-0.5); ABS Lymphocytes 1.8 10^3/uL (1.0-4.8); ABS Monocytes 0.3 10^3/uL (0.0-0.9); ABS Neutrophils 2.7 10^3/uL (1.5-7.6); Eosinophil % 1.3 %; Hematocrit 30.3 % (35-45); Hemoglobin 10.2 g/dL (11.5-14.3); Lymphocyte % 36.7 %; Mean Corpuscular Hemoglobin 32.9 pg (27-33); Mean Corpuscular Hgb Conc 33.7 g/dL (31-36); Mean Corpuscular Volume 97.6 fL (80-97); Mean Platelet Volume 8.2 fL (7.5-11.2); Platelet Count 179 10^3/uL (150-450); Red Blood Count 3.11 10^6/uL (3.63-4.92); Red Cell Distribution Width 13.2 % (12-17); White Blood Count 4.9 10^3/uL (3.8-11.8)
[2024-01-05] MEDS: Morphine 4 MG/ML VIAL (1 ml) IV ONE (23:24)
[2024-01-05 23:36] LABS: INR 1.09 (0.83-1.13)
[2024-01-05 23:49] LABS: High Sens Troponin Baseline 95 pg/mL (<15)
[2024-01-06 00:06] LABS: Chloride 101 mmol/L (101-111); Sodium 132 mmol/L (135-145)
[2024-01-06 00:07] LABS: ALT 21 U/L (7-52); Albumin 3.2 g/dL (3.2-5.2); Albumin/Globulin Ratio 0.6 (1-3); Alkaline Phosphatase 66 U/L (35-149); Anion Gap 8 mmol/L (2-16); Blood Urea Nitrogen 43 mg/dL (6-24); CO2 Carbon Dioxide 23 mmol/L (22-32); Calcium 8.2 mg/dL (8.6-10.3); Creatinine, Serum 1.53 mg/dL (0.51-0.95); Globulin 5.2 g/dL (2-4); Glucose 334 mg/dL (70-100); Total Bilirubin 0.2 mg/dL (0.2-1.0); Total Protein 8.4 g/dL (6.4-8.9); eGFR CKD-EPI 35.7 (>60)
[2024-01-06] MEDS: Heparin DRIP 25,000 UNITS BAG 25,000 UNITS/250 ML BAG IV SCH (00:48)
[2024-01-06] MEDS: Heparin 5000 UNITS/ML 1 mL VIAL IV SCH (00:51)
[2024-01-06 01:34] LABS: Creatinine, Serum 1.52 mg/dL (0.51-0.95); Potassium Redraw 4.3 mmol/L (3.5-5.0)
[2024-01-06 03:49] LABS: High Sensitivity Troponin 3 Hr 164 pg/mL (<15)
[2024-01-06] MEDS ORDERED: Dextrose 50% Syringe 50 ml 25 GM/50 ML SYRINGE IV PUSH PRN (04:43)
[2024-01-06 08:19] LABS: Anion Gap 7 mmol/L (2-16); Blood Urea Nitrogen 39 mg/dL (6-24); CO2 Carbon Dioxide 24 mmol/L (22-32); Calcium 7.9 mg/dL (8.6-10.3); Chloride 104 mmol/L (101-111); Creatinine, Serum 1.37 mg/dL (0.51-0.95); Glucose 139 mg/dL (70-100); Sodium 135 mmol/L (135-145); eGFR CKD-EPI 40.8 (>60)
[2024-01-06 09:35] LABS: Cholesterol 158 mg/dL; HDL Cholesterol 29.9 mg/dL; LDL Cholesterol 99 mg/dL; Triglycerides 147 mg/dL
[2024-01-06] MEDS: Aspirin EC 81 mg TAB.EC (enteric coated) PO SCH (10:02)
[2024-01-06 11:49] LABS: Magnesium 1.6 mg/dL (1.9-2.7); Potassium Redraw 4.4 mmol/L (3.5-5.0)
[2024-01-06 11:55] LABS: High Sensitivity Troponin 1 Hr 168 pg/mL (<15)
[2024-01-06] MEDS: Morphine 2 MG/ML SYRINGE IV PRN (14:45)
[2024-01-06] MEDS: Morphine 2 MG/ML SYRINGE IV ONE (15:20)
[2024-01-06 16:52] LABS: High Sensitivity Troponin 1 Hr 118 pg/mL (<15)
[2024-01-06] MEDS: Insulin GLARGINE 100 un/ml 10 ml VIAL SUBCUT SCH (21:15)
[2024-01-07 06:12] LABS: ABS Eosinophils 0.1 10^3/uL (0.0-0.5); ABS Lymphocytes 2.6 10^3/uL (1.0-4.8); ABS Monocytes 0.2 10^3/uL (0.0-0.9); ABS Nucleated RBC 0.01 10^3/ul; Eosinophil % 1.7 %; Hematocrit 29.9 % (35-45); Hemoglobin 10.2 g/dL (11.5-14.3); Lymphocyte % 52.3 %; Mean Corpuscular Hemoglobin 33.4 pg (27-33); Mean Corpuscular Volume 98.2 fL (80-97); Mean Platelet Volume 8.2 fL (7.5-11.2); Nucleated Red Blood Cells % 0.1 %/100WBC (0.0-0.8); Platelet Count 172 10^3/uL (150-450); Red Blood Count 3.04 10^6/uL (3.63-4.92); Red Cell Distribution Width 13.2 % (12-17)
[2024-01-07 07:33] LABS: Calcium 8.4 mg/dL (8.6-10.3); Creatinine, Serum 1.28 mg/dL (0.51-0.95); Magnesium 1.6 mg/dL (1.9-2.7); Potassium 4.3 mmol/L (3.5-5.0); eGFR CKD-EPI 44.2 (>60)
[2024-01-07] MEDS: Sulfur Hexaflouride MICROSPHR 25 MG VIAL IV ONE (10:17)
[2024-01-07] MEDS: Magnesium Sulfate 2 gm BAG 2 GM/50 ML BAG IVPB ONE (13:28)
[2024-01-07] MEDS: Magnesium Sulfate IV 1GM/100ML 1 GM/100 ML BAG IV ONE (14:49)
[2024-01-08] MEDS: NS 0.9% 1000 ml BAG 1,000 ML IV SCH ×2 (05:27→21:42)
[2024-01-08 06:07] LABS: Hematocrit 31.6 % (35-45); Hemoglobin 10.8 g/dL (11.5-14.3); Mean Corpuscular Hemoglobin 33.4 pg (27-33); Mean Corpuscular Volume 98.3 fL (80-97); Mean Platelet Volume 8.3 fL (7.5-11.2); Platelet Count 204 10^3/uL (150-450); Red Blood Count 3.22 10^6/uL (3.63-4.92); Red Cell Distribution Width 13.2 % (12-17); White Blood Count 6.9 10^3/uL (3.8-11.8)
[2024-01-08 06:39] LABS: Calcium 8.8 mg/dL (8.6-10.3); Creatinine, Serum 1.26 mg/dL (0.51-0.95); Magnesium 2.2 mg/dL (1.9-2.7); Potassium 4.2 mmol/L (3.5-5.0); eGFR CKD-EPI 45.1 (>60)
[2024-01-08] MEDS ORDERED: Midazolam 5 mg/5 ml VIAL 1 mg/ml 5 ml VIAL (5 mg) ONE (13:46)
[2024-01-08] MEDS ORDERED: fentaNYL 100 mcg/2 ml 50 MCG/ML VIAL ONE (13:46)
[2024-01-08] MEDS ORDERED: Heparin 2 UNITS/ML 1000 mls 2,000 ML IV ONE (13:46)
[2024-01-08] MEDS ORDERED: Iohexol 350 (CONTRAST) 200 ML MDV IV ONE (13:46)
[2024-01-08] MEDS ORDERED: Lidocaine 1% MPF 5 ML VIAL ONE (13:47)
[2024-01-08] MEDS ORDERED: nitroGLYCERIN DRIP 25,000 MCG/250 ML BTL ONE (13:47)
[2024-01-08] MEDS ORDERED: Heparin 1,000 UNIT/ML 10 ml (10,000 UNITS) CATHLAB/DIALYSIS ONE (13:47)
[2024-01-08] MEDS ORDERED: VERAPAMIL 2.5 MG/ML 2 ML VIAL ** 5 mg/2 ml ONE ×2 (13:53→14:47)
[2024-01-08] MEDS ORDERED: Ondansetron 4 mg VIAL 2 MG/ML 2 ml VIAL ONE (17:48)
[2024-01-08] MEDS: Ondansetron 4 mg VIAL 2 MG/ML 2 ml VIAL IV ONE (17:57)
[2024-01-08] MEDS: Ondansetron 4 mg VIAL 2 MG/ML 2 ml VIAL IV PRN (22:59)
[2024-01-09] MEDS: Insulin GLARGINE 100 un/ml 10 ml VIAL SUBCUT ONE (00:14)
[2024-01-09 05:41] LABS: ABS Eosinophils 0.1 10^3/uL (0.0-0.5); ABS Lymphocytes 2.7 10^3/uL (1.0-4.8); ABS Monocytes 0.4 10^3/uL (0.0-0.9); ABS Neutrophils 2.5 10^3/uL (1.5-7.6); ABS Nucleated RBC 0.01 10^3/ul; Eosinophil % 1.3 %; Hematocrit 30.4 % (35-45); Hemoglobin 10.2 g/dL (11.5-14.3); Lymphocyte % 47.4 %; Mean Corpuscular Hemoglobin 32.7 pg (27-33); Mean Corpuscular Hgb Conc 33.5 g/dL (31-36); Mean Corpuscular Volume 97.7 fL (80-97); Mean Platelet Volume 8.2 fL (7.5-11.2); Nucleated Red Blood Cells % 0.1 %/100WBC (0.0-0.8); Platelet Count 193 10^3/uL (150-450); Red Blood Count 3.11 10^6/uL (3.63-4.92); Red Cell Distribution Width 13.4 % (12-17); White Blood Count 5.6 10^3/uL (3.8-11.8)
[2024-01-09 06:37] LABS: Calcium 8.5 mg/dL (8.6-10.3); Creatinine, Serum 1.32 mg/dL (0.51-0.95); Potassium 4.2 mmol/L (3.5-5.0); eGFR CKD-EPI 42.6 (>60)
[2024-01-09] MEDS: Isosorbide Mononit ER 30mg TAB PO SCH (10:47)
[2024-01-10 08:23] LABS: Hematocrit 29.2 % (35-45); Hemoglobin 9.8 g/dL (11.5-14.3); Mean Corpuscular Hemoglobin 34.5 pg (27-33); Mean Corpuscular Hgb Conc 33.8 g/dL (31-36); Mean Corpuscular Volume 102.1 fL (80-97); Red Blood Count 2.86 10^6/uL (3.63-4.92); Red Cell Distribution Width 13.9 % (12-17); White Blood Count 4.8 10^3/uL (3.8-11.8)
[2024-01-10 08:55] LABS: ABS Eosinophils 0.1 10^3/uL (0.0-0.5); ABS Lymphocytes 2.3 10^3/uL (1.0-4.8); ABS Monocytes 0.3 10^3/uL (0.0-0.9); ABS Neutrophils 2.1 10^3/uL (1.5-7.6); ABS Nucleated RBC 0.01 10^3/ul; Eosinophil % 1.5 %; Lymphocyte % 47.6 %; Mean Platelet Volume 8.8 fL (7.5-11.2); Nucleated Red Blood Cells % 0.2 %/100WBC (0.0-0.8); Platelet Count 97 10^3/uL (150-450)
[2024-01-10 12:06] LABS: Creatinine, Serum 1.55 mg/dL (0.51-0.95); Magnesium 1.7 mg/dL (1.9-2.7); Potassium 4.4 mmol/L (3.5-5.0); eGFR CKD-EPI 35.2 (>60)
[2024-01-10] MEDS: Magnesium Sulfate 2 gm BAG 2 GM/50 ML BAG ONE (13:59)
[2024-01-10] MEDS: Magnesium Sulfate 2 gm BAG 2 GM/50 ML BAG IVPB ONE (14:11)
[2024-01-10 14:36] VITALS: BP 129/47
== END 2024-01-10 15:17 | disposition home or self-care (01) | DRG 281 ==
LOC: EDHOLD 22:55 → ED 22:55 → SUATTDRO 01-06 00:51 → MEDTELE 01-06 07:54 → SUATTDRO 01-06 11:47
PROVIDERS: ADMIT Hospitalist; ATTEND Internal Medicine